=== PATIENT | female | born 1945 | race Caucasian/White ===

== ENCOUNTER 2017-08-11 07:51 | Day surgery (SDC) | payer MEDICARE, MEDICAID, SELFPAY | END 2017-08-11 14:55 | disposition home or self-care (01) | PROVIDERS: Family Provider Internal Medicine; Visit Provider Orthopaedic Surgery | DX: M84.375A Stress fracture, left foot, initial encounter for fracture (principal); M89.8X7 Other specified disorders of bone, ankle and foot; M19.072 Primary osteoarthritis, left ankle and foot | CPT/HCPCS: 28450; 73620; 76000; 87070; 87075; C1713; J2405 ==

== ENCOUNTER → 2017-10-22 13:12 | Outpatient (CLI) | payer MEDICARE, MEDICAID, SELFPAY ==
--- NOTE | 2017-10-22 13:19 | XR_ITS ---
XR foot LT min 3V HISTORY: ITS.REASON: status post LEFT subchondroplasty navicular ORDERING PHYSICIAN: Rosales Corey MD PATIENT AGE: 71 years COMPARISON: 08/31/2017 FINDINGS: Status post subchondroplasty of the navicular with hyperdensity noted within the navicular with extravasation of the material in the mid foot as before. Overall no significant change. Mild osteopenia of the bony structures. IMPRESSION: Status post subchondral plasty of the navicular with some extravasation of the material in the periventricular region as before. Overall no significant change
== END ==
PROVIDERS: PCP Internal Medicine; Visit Provider Orthopaedic Surgery
DX: Z48.89 Encounter for other specified surgical aftercare (principal)
CPT/HCPCS: 73630

== ENCOUNTER → 2017-12-23 13:32 | Outpatient (CLI) | payer MEDICARE, MEDICAID, SELFPAY ==
--- NOTE | 2017-12-23 13:36 | XR_ITS ---
Left foot: Weightbearing Foot 3 Views HISTORY: Pain and swelling ITS.REASON: left foot pain ORDERING PHYSICIAN: Rosales Corey MD PATIENT AGE: 71 years COMPARISON: 2 05 01 FINDINGS: Diffuse increased density once again noted involving the navicular consistent with previous subchondral plasty. Multiple foci of hyperdensity noted in the periarticular region of the mid foot in the periventricular region and between the distal aspect of the calcaneus and cuboid consistent with extravasation of material injected for the subchondral plasty. There is a additional lucency along the medial aspect of the navicular not readily apparent on the previous study. This could related to overlying artifact from the hyperdense material. A fracture is an additional consideration. Consider CT for more thorough evaluation. No obstructive process IMPRESSION: Status post subchondral plasty of the navicular with possible fracture of the medial aspect of the navicular. CT may be of further value
== END ==
PROVIDERS: PCP Internal Medicine; Visit Provider Orthopaedic Surgery
DX: Z48.89 Encounter for other specified surgical aftercare (principal); M79.672 Pain in left foot
CPT/HCPCS: 73630

== ENCOUNTER → 2017-12-23 14:54 | Outpatient (CLI) | payer MEDICARE, MEDICAID, SELFPAY ==
[2017-12-23 15:12] LABS: Basophils # 0.1 K/mm3 (0-0.2); Basophils % 0.5 % (0.1-2.0); Eosinophils # 0.2 K/mm3 (0.0-0.4); Eosinophils % 1.5 % (0.1-12.0); Hematocrit 47.1 % (37.0-47.0); Hemoglobin 15.2 g/dL (12.2-16.2); Lymphocytes # 3.9 K/mm3 (0.7-4.5); Lymphocytes % 28.8 K/mm3 (10-50); Mean Corpuscular HGB Conc 32.2 g/dL (31.8-35.4); Mean Corpuscular Hemoglobin 28.9 pg (27.0-31.2); Mean Corpuscular Volume 89.8 fl (81-99); Mean Platelet Volume 8.7 fl (7.4-10.4); Monocytes # 0.8 K/mm3 (0.1-1.0); Monocytes % 5.6 % (1.7-9.3); Neutrophils # 8.6 K/mm3 (1.8-7.8); Neutrophils % 63.6 % (37.0-80.0); Platelet Count 360 K/mm3 (142-424); Red Blood Count 5.25 M/mm3 (4.20-5.40); Red Cell Distribution Width 14.4 % (11.5-17.5); White Blood Count 13.5 K/mm3 (4.8-10.8)
[2017-12-23 15:44] LABS: C-Reactive Protein 1.9 mg/L (0.0-0.9)
[2017-12-23 15:50] LABS: Erythrocyte Sedimentation Rate 23 mm/hr (0-30)
== END ==
PROVIDERS: PCP Internal Medicine; Visit Provider Orthopaedic Surgery
DX: B99.9 Unspecified infectious disease (principal); Z48.89 Encounter for other specified surgical aftercare; M79.672 Pain in left foot
CPT/HCPCS: 36415; 73630; 85025; 85651; 86140

== ENCOUNTER → 2018-01-04 12:16 | Outpatient (CLI) | payer MEDICARE, MEDICAID, SELFPAY ==
[2018-01-04 12:39] LABS: Basophils # 0.1 K/mm3 (0-0.2); Basophils % 0.6 % (0.1-2.0); Eosinophils # 0.1 K/mm3 (0.0-0.4); Hematocrit 46.9 % (37.0-47.0); Hemoglobin 15.1 g/dL (12.2-16.2); Lymphocytes % 35.6 K/mm3 (10-50); Mean Corpuscular HGB Conc 32.3 g/dL (31.8-35.4); Mean Corpuscular Hemoglobin 28.7 pg (27.0-31.2); Mean Platelet Volume 8.5 fl (7.4-10.4); Monocytes # 0.5 K/mm3 (0.1-1.0); Monocytes % 4.4 % (1.7-9.3); Neutrophils # 6.5 K/mm3 (1.8-7.8); Neutrophils % 58.3 % (37.0-80.0); Platelet Count 362 K/mm3 (142-424); Red Blood Count 5.27 M/mm3 (4.20-5.40); Red Cell Distribution Width 14.3 % (11.5-17.5); White Blood Count 11.1 K/mm3 (4.8-10.8)
[2018-01-04 13:05] LABS: C-Reactive Protein 0.7 mg/L (0.0-0.9)
[2018-01-04 14:41] LABS: Erythrocyte Sedimentation Rate 0 mm/hr (0-30)
== END ==
PROVIDERS: Visit Provider Orthopaedic Surgery
DX: M25.562 Pain in left knee (principal); B99.9 Unspecified infectious disease
CPT/HCPCS: 36415; 85025; 85651; 86140

== ENCOUNTER → 2018-01-20 10:28 | Outpatient (CLI) | payer MEDICARE, MEDICAID, SELFPAY ==
[2018-01-20 11:57] LABS: Alanine Aminotransferase 37 U/L (12-78); Albumin Level 3.8 gm/dL (3.4-5.0); Albumin/Globulin Ratio 1.1 (1.1-1.8); Alkaline Phosphatase 96 U/L (46-116); Anion Gap 14.2 mEq/L (5-15); Aspartate Amino Transferase 30 U/L (15-37); Bilirubin,Total 0.3 mg/dL (0.2-1.0); Blood Urea Nitrogen 13 mg/dL (7-18); C-Reactive Protein 1.1 mg/L (0.0-0.9); Calcium 9.2 mg/dL (8.5-10.1); Carbon Dioxide 26 mmol/L (21.0-32.0); Chloride 107 mmol/L (98-107); Creatinine,Serum 0.57 mg/dL (0.55-1.02); Estimated Glomerular Filt Rate 105 ml/min (>60); GFR (African American) 127 ML/MIN (>60); Globulin 3.4 gm/dl (1.3-3.2); Glucose 91 mg/dL (74-106); Potassium 4.2 mmoL/L (3.5-5.1); Sodium 143 mmol/L (136-145); Total Protein,Serum 7.2 gm/dL (6.4-8.2)
[2018-01-20 12:25] LABS: Erythrocyte Sedimentation Rate 17 mm/hr (0-30)
== END ==
PROVIDERS: Visit Provider Orthopaedic Surgery
DX: I10 Essential (primary) hypertension (principal)
CPT/HCPCS: 36415; 80048; 80053; 85651; 86140

== ENCOUNTER → 2018-02-10 11:59 | Outpatient (CLI) | payer MEDICARE, MEDICAID, SELFPAY ==
--- NOTE | 2018-02-10 12:07 | XR_ITS ---
XR foot LT min 3V HISTORY: Follow-up surgery, foot pain ITS.REASON: follow up ORDERING PHYSICIAN: Rosales Corey MD PATIENT AGE: 72 years COMPARISON: 12/23/2017 FINDINGS: Status post prior navicular subchondral plasty. There is extravasation of the bone cement in the periventricular region. There was question of a fracture of the navicular on the previous study not well demonstrated on today's exam. Small amount of bone cement is extravasated between the first and second cuneiforms. IMPRESSION: Overall no change status post subchondral plasty of the navicular
[2018-02-10 12:30] LABS: Basophils # 0.1 K/mm3 (0-0.2); Basophils % 0.8 % (0.1-2.0); Eosinophils # 0.1 K/mm3 (0.0-0.4); Eosinophils % 1.2 % (0.1-12.0); Hematocrit 44.8 % (37.0-47.0); Hemoglobin 13.9 g/dL (12.2-16.2); Lymphocytes # 3.4 K/mm3 (0.7-4.5); Lymphocytes % 37.8 K/mm3 (10-50); Mean Corpuscular HGB Conc 31.1 g/dL (31.8-35.4); Mean Corpuscular Hemoglobin 27.7 pg (27.0-31.2); Mean Platelet Volume 8.4 fl (7.4-10.4); Monocytes # 0.5 K/mm3 (0.1-1.0); Monocytes % 5.2 % (1.7-9.3); Neutrophils # 4.9 K/mm3 (1.8-7.8); Neutrophils % 55.1 % (37.0-80.0); Platelet Count 318 K/mm3 (142-424); Red Blood Count 5.03 M/mm3 (4.20-5.40); Red Cell Distribution Width 13.9 % (11.5-17.5)
[2018-02-10 13:24] LABS: Erythrocyte Sedimentation Rate 19 mm/hr (0-30)
== END ==
PROVIDERS: Visit Provider Orthopaedic Surgery
DX: Z09 Encounter for follow-up examination after completed treatment for conditions other than malignant neoplasm (principal); Z79.899 Other long term (current) drug therapy
CPT/HCPCS: 36415; 73630; 85025; 85651; 86140

== ENCOUNTER → 2019-05-17 09:47 | Outpatient (CLI) | payer MEDICARE, MEDICAID, SELFPAY ==
[2019-05-17 11:09] LABS: Basophils # 0.1 K/mm3 (0-0.2); Basophils % 0.6 % (0.1-2.0); Eosinophils # 0.1 K/mm3 (0.0-0.4); Eosinophils % 0.7 % (0.1-12.0); Hematocrit 44.9 % (37.0-47.0); Hemoglobin 14.3 g/dL (12.2-16.2); Lymphocytes # 3.1 K/mm3 (0.7-4.5); Lymphocytes % 37.8 % (10-50); Mean Corpuscular HGB Conc 31.9 g/dL (31.8-35.4); Mean Corpuscular Hemoglobin 28.4 pg (27.0-31.2); Mean Corpuscular Volume 89.3 fl (81-99); Monocytes # 0.5 K/mm3 (0.1-1.0); Monocytes % 6.3 % (1.7-9.3); Neutrophils # 4.4 K/mm3 (1.8-7.8); Neutrophils % 54.5 % (37.0-80.0); Platelet Count 344 K/mm3 (142-424); Red Blood Count 5.03 M/mm3 (4.20-5.40); White Blood Count 8.1 K/mm3 (4.8-10.8)
[2019-05-17 12:15] LABS: Alanine Aminotransferase 42 U/L (12-78); Albumin Level 3.9 gm/dL (3.4-5.0); Albumin/Globulin Ratio 1.1 (1.1-1.8); Alkaline Phosphatase 79 U/L (46-116); Anion Gap 16.2 mEq/L (5-15); Aspartate Amino Transferase 42 U/L (15-37); Bilirubin,Total 0.5 mg/dL (0.2-1.0); Blood Urea Nitrogen 14 mg/dL (7-18); Calcium 9.7 mg/dL (8.5-10.1); Carbon Dioxide 29 mmol/L (21.0-32.0); Chloride 101 mmol/L (98-107); Chol/HDL Ratio 3.6 (1-3.5); Cholesterol 215 mg/dL (140-200); Estimated Glomerular Filt Rate 98 ml/min (>60); GFR (African American) 119 ML/MIN (>60); Globulin 3.4 gm/dl (1.3-3.2); Glucose 103 mg/dL (74-106); HDL Cholesterol 59 mg/dL (29-89); LDL Cholesterol 133 mg/dL (0-130); Potassium 4.2 mmoL/L (3.5-5.1); Sodium 142 mmol/L (136-145); Total Protein,Serum 7.3 gm/dL (6.4-8.2); Triglycerides 113 mg/dL (30-200); VLDL Cholesterol 23 mg/dL (0-40)
== END ==
PROVIDERS: Visit Provider Internal Medicine
DX: I10 Essential (primary) hypertension (principal); E78.5 Hyperlipidemia, unspecified; G62.9 Polyneuropathy, unspecified
CPT/HCPCS: 36415; 80053; 80061; 85025

== ENCOUNTER → 2020-04-23 11:13 | Outpatient (CLI) | payer MEDICARE, MEDICAID, SELFPAY ==
[2020-04-23 11:57] LABS: Basophils # 0.1 K/mm3 (0-0.2); Eosinophils # 0.1 K/mm3 (0.0-0.4); Eosinophils % 1.3 % (0.1-12.0); Hematocrit 44.3 % (37.0-47.0); Hemoglobin 15.2 g/dL (12.2-16.2); Lymphocytes # 3.4 K/mm3 (0.7-4.5); Lymphocytes % 36.2 % (10-50); Mean Corpuscular HGB Conc 34.3 g/dL (31.8-35.4); Mean Corpuscular Hemoglobin 29.4 pg (27.0-31.2); Mean Corpuscular Volume 85.8 fl (81-99); Mean Platelet Volume 8.2 fl (7.4-10.4); Monocytes # 0.5 K/mm3 (0.1-1.0); Neutrophils # 5.4 K/mm3 (1.8-7.8); Neutrophils % 56.6 % (37.0-80.0); Platelet Count 331 K/mm3 (142-424); Red Blood Count 5.16 M/mm3 (4.20-5.40); Red Cell Distribution Width 14.2 % (11.5-17.5); White Blood Count 9.5 K/mm3 (4.8-10.8)
[2020-04-23 12:03] LABS: Hemoglobin A1C 6.4 % (4.0-6.0)
[2020-04-23 12:12] LABS: Alanine Aminotransferase 61 U/L (12-78); Albumin Level 4.3 g/dl (3.5-5.0); Albumin/Globulin Ratio 1.4 (1.1-1.8); Alkaline Phosphatase 97 U/L (38-126); Anion Gap 14.8 mEq/L (5-15); Aspartate Amino Transferase 106 U/L (14-36); Bilirubin,Total 0.7 mg/dl (0.2-1.3); Blood Urea Nitrogen 15 mg/dl (7-17); Calcium 9.9 mg/dl (8.4-10.2); Carbon Dioxide 29 mmol/L (22.0-30.0); Chloride 99 mmol/L (98-107); Chol/HDL Ratio 3.3 (1-3.5); Cholesterol 209 mg/dl (140-200); Estimated Glomerular Filt Rate 98 ml/min (>60); GFR (African American) 119 ML/MIN (>60); Globulin 3.1 g/dL (1.3-3.2); Glucose 114 mg/dl (74-100); HDL Cholesterol 63 mg/dl (40-60); Potassium 3.8 mmoL/L (3.5-5.1); Sodium 139 mmol/L (136-145); Total Protein,Serum 7.4 g/dl (6.3-8.2); Triglycerides 126 mg/dl (30-150); VLDL Cholesterol 25 mg/dL (0-40)
[2020-04-23 12:22] LABS: Direct LDL Cholesterol 138.96 mg/dL (100-129)
[2020-04-23 12:33] LABS: Erythrocyte Sedimentation Rate 18 mm/hr (0-30)
[2020-04-23 12:42] LABS: Thyroid Stimulating Hormone 3.28 uIU/mL (0.465-4.68)
[2020-04-24 15:54] LABS: Albumin 3.6 g/dL (2.9-4.4); Alpha-1-Globulin 0.3 g/dL (0.0-0.4); Alpha-2-Globulin 0.9 g/dL (0.4-1.0); Gamma Globulin 0.8 g/dL (0.4-1.8)
== END ==
PROVIDERS: Visit Provider Internal Medicine
DX: G60.9 Hereditary and idiopathic neuropathy, unspecified (principal); G43.909 Migraine, unspecified, not intractable, without status migrainosus; I10 Essential (primary) hypertension; E78.5 Hyperlipidemia, unspecified; M54.5 Low back pain; Z79.899 Other long term (current) drug therapy
CPT/HCPCS: 36415; 80053; 80061; 83036; 84155; 84165; 84443; 85025; 85651

== ENCOUNTER 2022-03-04 13:09 | Emergency (ER) | payer MEDICARE, OTHER, SELFPAY ==
[2022-03-04 13:10] VITALS: BP 129/82; PULSE 101; RESP 18; TEMP 36.7; O2SAT 97; BMI 32.3
--- NOTE | 2022-03-04 13:24 | XR_ITS ---
FINAL REPORT CLINICAL HISTORY: FALL, left lateral foot pain, bruising FINDINGS: LEFT FOOT: Three views of the left foot were obtained. There is a comminuted fracture of the mid and distal 5th metatarsal to 4 mm of distraction. There are mild degenerative changes of the midfoot. There is a small plantar calcaneal spur. There is no soft tissue abnormality. IMPRESSION: Comminuted fracture of the mid and distal 5th metatarsal. Reviewed, Interpreted and Dictated by Adriel Fritz III, MD Transcribed by Cha Doran Authenticated and [facility]
--- NOTE | 2022-03-04 13:24 | XR_ITS ---
FINAL REPORT CLINICAL HISTORY: FALL, knee pain FINDINGS: RIGHT KNEE: Three views of the right knee were obtained. There is no acute fracture or dislocation. Visualized joint spaces are normally aligned. There is no joint effusion. Soft tissues are unremarkable. IMPRESSION: No acute bony abnormality. Reviewed, Interpreted and Dictated by Adriel Fritz III, MD Transcribed by Cha Doran Authenticated and [facility]
[2022-03-04 13:50] VITALS: BP 129/82; PULSE 101; RESP 18; TEMP 36.7; O2SAT 97; BMI 32.3
--- NOTE | 2022-03-04 14:05 | HMH.EDUTC ---
[facility] [place] Clinical Impression: Foot fracture Qualifiers: Encounter type: initial encounter Fracture type: closed Laterality: left Qualified Code(s): S92.902A - Unspecified fracture of left foot, initial encounter for closed fracture Disposition: Home, Self-Care Condition on Discharge: Good Instructions: How to Use an Elastic Bandage-Knee Sprain, DI for Knee Sprain, How To Perform RICE (Rest, Ice, Compress, Elevate) Additional Instructions: Go straight to DR Ochoa office for further treatment and evaluation *RICE, Rest the extremity, Ice 15-20 minutes 3-4 times daily, Compress- wear the darrion wrap as discussed as much as possible to help reduce swelling and pain, Elevate the extremity when at rest *Darrion wrap is for support and help control swelling in right knee, use it except in the shower. Be sure that is not to tight but not to loose either *Elevate when resting Immediately follow up with your family doctor for new or worsening of symptoms, or no noticeable improvement over the next 3-5 days Further treatment per Dr Ochoa Referrals: Onur Barillas MD [Primary Care Provider] - As needed Ofelia Ochoa DPM [Staff Physician] - Time of Disposition: 14:36 Medical Decision Making - Nash Inquiry Pt receiving controlled substance: No Nash was queried for this patient: No Vital Signs: 03/04/22 13:10 03/04/22 13:50 03/04/22 14:38 Temperature 98.1 F 98.1 F 98.1 F Temperature Source Oral Oral Pulse Rate 101 H Pulse Rate [Right Brachial] 101 H 101 H Respiratory Rate 18 18 18 Blood Pressure 129/82 Blood Pressure [Right Arm] 129/82 129/82 Blood Pressure Mean [Right Arm] 97 97 Blood Pressure Source [Right Arm] Automatic Cuff Automatic Cuff Blood Pressure Position [Right Arm] Sitting Sitting 02 Sat by Pulse Oximetry 97 97 Oxygen Delivery Method Room Air Room Air - Radiology Data #1 Image(s): Knee Image Reviewed: Yes I have reviewed radiologist's interpretation IMPRESSION: No acute bony abnormality. #2 Image(s): Foot/Toes Image Reviewed: Yes I have reviewed radiologist's interpretation IMPRESSION: Comminuted fracture of the mid and distal 5th metatarsal. - Physician Consults Physician Consulted: Dr Corey Time: 14:00 Reason -: Orthopedic Eval/Care Comment/Response: Spoke with Dr Corey and he advised to speak with Dr Ochoa in Podiatry for fracture in foot Additional Consult: Dr Ochoa Time: 14:25 Reason -: Podiatry Eval/Care Comment/Response: Awaiting call back, Dr Ochoa called back and she viewed xrays Advised to bring patient to her clinic and they would splint/boot and discuss further treatment options [facility] [place] - General Stated complaint: AO fall 03/03 foot/knee pain Time Seen by Provider: 03/04/22 14:06 Mode of Arrival: Ambulatory Source of Information: Patient Limitations: No Limitations Description of Symptoms (Recalled from Triage Doc. by RN): PATIENT REPORTS FALLING LAST NIGHT. C/O PAIN TO RIGHT KNEE AND LEFT FOOT. BRUISING NOTED TO LEFT FOOT. DENIES HITTING HEAD OR LOC HEENT Symptoms (Recalled from RN notes): No Resp Symptoms (Recalled from RN notes): No Skin Symptoms (Recalled from RN notes): No MS Symptoms (Recalled from RN notes): Yes Functional Status (Recalled from RN notes): WNL - History of Present Illness Provider Complaint: Patient states that she got up to go to the bathroom last night when he feet folded under her and she fell States that she has been having pain in her right knee and left foot States that left foot is bruised and swollen and she hasnt been able to walk on it without pain so she came in today - Related Data Home Medications Medication Instructions Recorded Confirmed cetirizine 10 mg capsule PO 10/22/17 03/04/22 clonidine HCl 0.1 mg tablet 0.1 mg PO BID 10/22/17 03/04/22 fluoxetine 10 mg capsule 10 mg PO BID 10/22/17 03/04/22 furosemide 20 mg tablet 20 mg PO ONCE 10/22/17 03/04/22 levothyroxine 50 mcg capsule PO 10/22/17 03/04/22 topira
[2022-03-04 14:38] VITALS: BP 129/82; PULSE 101; RESP 18; TEMP 36.7; O2SAT 97
== END 2022-03-04 14:39 | disposition home or self-care (01) ==
LOC: ER 13:22 → UTC 13:22
PROVIDERS: Emergency Provider Nurse Practitioner; PCP Internal Medicine
DX: S92.352A Displaced fracture of fifth metatarsal bone, left foot, initial encounter for closed fracture (principal); S83.91XA Sprain of unspecified site of right knee, initial encounter; M25.561 Pain in right knee; M79.672 Pain in left foot; W01.0XXA Fall on same level from slipping, tripping and stumbling without subsequent striking against object, initial encounter; Y92.013 Bedroom of single-family (private) house as the place of occurrence of the external cause
CPT/HCPCS: 36415; 71046; 73562; 73630; 80053; 82652; 83036; 85025; 85651; 86140; 93005; 99213; C9803; G0463; U0003; U0005

== ENCOUNTER → 2022-03-04 15:44 | Outpatient (CLI) | payer MEDICARE, OTHER, SELFPAY ==
--- NOTE | 2022-03-04 15:57 | ECG_ITS ---
APPROVED REPORT Exam: Resting ECG HR:93 bpm ECG Measurements Heart Rate 93 AXES SD 155 P 90 QRSd 89 QRS 78 QT 369 T 74 QTc 420 Conclusion SINUS RHYTHM LOW QRS VOLTAGE IN PRECORDIAL LEADS [QRS DEFLECTION < 1.0 mV IN CHEST LEADS] NONSPECIFIC T-WAVE ABNORMALITY BORDERLINE ECG UNCONFIRMED REPORT Electronically signed by : Norman Aviles MD 03/05/2022 14:40:14
--- NOTE | 2022-03-04 15:59 | XR_ITS ---
FINAL REPORT CLINICAL HISTORY: preop exam,asymptomatic at this time. ankle surgery tomorrow. COMPARISON: August 04, 2017 FINDINGS: Two views of the chest were obtained. The heart size and pulmonary vascularity are within normal limits. The mediastinum is normal. No acute pulmonary abnormality is identified. There is no pneumothorax. The bony thorax is intact. IMPRESSION: No active cardiopulmonary disease. Reviewed, Interpreted and Dictated by Adriel Fritz III, MD Transcribed by Butch Templeton Authenticated and . [facility]
[2022-03-04 16:43] LABS: Basophils # 0.2 K/mm3 (0-0.2); Basophils % 1.7 % (0.1-2.0); Eosinophils # 0.1 K/mm3 (0.0-0.4); Hematocrit 46.3 % (37.0-47.0); Hemoglobin 15.3 g/dL (12.2-16.2); Lymphocytes # 2.7 K/mm3 (0.7-4.5); Mean Corpuscular HGB Conc 33.1 g/dL (31.8-35.4); Mean Corpuscular Hemoglobin 29.4 pg (27.0-31.2); Mean Corpuscular Volume 88.9 fl (81-99); Mean Platelet Volume 8.8 fl (7.4-10.4); Monocytes # 0.6 K/mm3 (0.1-1.0); Monocytes % 4.6 % (1.7-9.3); Neutrophils # 9.7 K/mm3 (1.8-7.8); Neutrophils % 72.7 % (37.0-80.0); Platelet Count 378 K/mm3 (142-424); Red Cell Distribution Width 14.5 % (11.5-17.5); White Blood Count 13.4 K/mm3 (4.8-10.8)
[2022-03-04 18:06] LABS: Erythrocyte Sedimentation Rate 10 mm/hr (0-30)
[2022-03-04 18:10] LABS: Chloride 101 mmol/L (98-107); Potassium 4.1 mmoL/L (3.5-5.1); Sodium 137 mmol/L (136-145)
[2022-03-04 18:13] LABS: Alanine Aminotransferase 38 U/L (12-78); Albumin Level 4.5 g/dl (3.5-5.0); Albumin/Globulin Ratio 1.7 (1.1-1.8); Alkaline Phosphatase 77 U/L (38-126); Anion Gap 13.1 mEq/L (5-15); Aspartate Amino Transferase 46 U/L (14-36); Bilirubin,Total 0.5 mg/dl (0.2-1.3); Blood Urea Nitrogen 10 mg/dl (7-17); Carbon Dioxide 27 mmol/L (22.0-30.0); Estimated Glomerular Filt Rate 120 ml/min (>60); GFR (African American) 146 ML/MIN (>60); Globulin 2.7 g/dL (1.3-3.2); Total Protein,Serum 7.2 g/dl (6.3-8.2)
[2022-03-04 18:14] LABS: Calcium 10.1 mg/dl (8.4-10.2); Glucose 126 mg/dl (74-100)
[2022-03-04 19:16] LABS: Hemoglobin A1C 5.9 % (4.0-6.0)
[2022-03-21 17:11] LABS: 1,25 Dihydroxy Vitamin D 38 pg/mL (.); 1,25-Dihydroxy, Vitamin D-2 <10 pg/mL (.); 1,25-Dihydroxy, Vitamin D-3 38 pg/mL (.)
== END ==
PROVIDERS: PCP Internal Medicine; Visit Provider Podiatrist
DX: Z01.818 Encounter for other preprocedural examination (principal); M79.673 Pain in unspecified foot; R73.9 Hyperglycemia, unspecified
CPT/HCPCS: 36415; 71046; 80053; 82652; 83036; 85025; 85651; 86140; 93005; C9803; U0003; U0005

== ENCOUNTER 2022-03-05 10:35 | Day surgery (SDC) | payer MEDICARE, OTHER, SELFPAY ==
[2022-03-05 11:05] VITALS: BP 143/94; PULSE 100; RESP 18; TEMP 36.9; O2SAT 95; BMI 32.3
--- NOTE | 2022-03-05 13:27 | HMH.ANESCL ---
[facility] Anesthesia Checklist - Patient Identification Patient Identification: Arm Band - Structural Data Admitted From: Home Planned Operative Procedure/s: ORIF Left Foot Consent for Planned Operative Procedure(s) Verified: Yes Verified Documents: Surgical Consent, History and Physical - NPO Status Verified Time NPO: 00:00 - Additional verifications Anesthesia Reactions: Yes (NAUSEA / VOMITING) Hx Blood Transfusions: No Blood Transfusion Reaction: No - Airway Assessment C-Spine Mobility Assessed: Yes (mp2) TMJ Mobility Assessed: Yes Dentition: Edentulous - Neurological Assessment Level of Consciousness: Awake, Alert - Anesthesia Plan Anesthesia Risk discussed: Yes Anesthesia Plan: Verified ASA Class: II Anesthesia Type: MAC w/Block [facility] History I have reviewed the patient's past medical history: Yes Medical History: Reports:: Anxiety, Asthma, Gastroesophageal Reflux Disease(GERD), Hypertension, Osteoporosis Denies:: Cancer, Diabetes Mellitus Type 1, Diabetes Mellitus Type 2, MRSA, Seizures Comment Only: Internal Pacemaker (PACEMAKER REMOVED 1988) *Have you ever received a pneumonia vaccine?: No *Have you received a flu vaccine this season?: Yes Other Medical History: Reports: Arthritis, Hypothyroidism, Osteoporosis. Denies: Blood Transfusion Reaction Anesthesia experience/problems:: ponv Laterality Cases: Left: Other Other Surgeries: Yes: Hysterectomy-Total, Tubal Ligation, Other (meet Christine )Comment Only: Pacemaker (PACEMAKER REMOVED 1988) Amputation: No Fractures: No - *Social History Last grade of school completed: High school graduate Smoking Status: Never smoker Alcohol Intake: never Substance Use Type: denies use *Occupational Status:: retired Housing: house Household Members: none *Travel in the last 8 weeks: None - Psychiatric History Pschychiatric History:: Reports:: Anxiety Family Hx:: Cancer, Diabetes, Heart Attack, Hyperlipidemia, Hypertension, Stroke
[2022-03-05 13:40] VITALS: TEMP 38
--- NOTE | 2022-03-05 13:56 | SUR.OPER ---
1323 family updated that procedure has begun by Virginia Gastelum RN
--- NOTE | 2022-03-05 14:00 | XR_ITS ---
FINAL REPORT CLINICAL HISTORY: ORIF L 5th met COMPARISON: March 04, 2022 FINDINGS: LEFT FOOT Three views of the left foot demonstrate postoperative changes from ORIF of the 5th metatarsal fracture. There is improved alignment of the fracture fragments. Mild degenerative change is noted. The soft tissues are unremarkable. IMPRESSION: Postoperative changes from ORIF of the 5th metatarsal fracture with improved alignment. Reviewed, Interpreted and Dictated by Adriel Fritz III, MD Transcribed by China Dao Authenticated and [facility]
--- NOTE | 2022-03-05 14:13 | XR_ITS ---
FINAL REPORT CLINICAL HISTORY: ORIF 5TH METETARSAL Fluoro time: .24 FINDINGS: FLUORO TIME PROCEDURE: Fluoroscopy in the operating room. FINDINGS: Fluoroscopy time was provided by the radiology department for the clinical service. Two films were obtained. Fluoroscopy exposure time: 24 seconds IMPRESSION: 24 seconds of fluoroscopy time. Reviewed, Interpreted and Dictated by Adriel Fritz III, MD Transcribed by Cha Doran Authenticated and [facility]
[2022-03-05 14:40] VITALS: BP 113/55; PULSE 99; RESP 16; TEMP 36.1; O2SAT 95
[2022-03-05 14:55] VITALS: BP 97/64; PULSE 85; RESP 16; TEMP 36.1; O2SAT 93
--- NOTE | 2022-03-05 15:07 | HMH.OPNOTE ---
Date of procedure: 03/05/22 Pre-op Diagnosis:: 1. Left 5th metatarsal displaced comminuted fracture 2. History of left navicular stress fracture Post-op Diagnosis:: Same Procedure performed:: 1. Left fifth metatarsal ORIF 2. Left navicular bone biopsy Surgeon:: Ofelia Ochoa DPM [employer]ER:: Pa Serna Anesthesia: MAC, regional (Left popliteal nerve block) Estimated blood loss (mL): 10 Clinical Note:: Patient is a 76-year-old active female who injured the left foot and right knee when she fell getting out of bed 03/03/2022. X-rays reviewed and discussed with the patient. Conservative treatment discussed but not recommended. Patient is active, drives and lives alone. She needs the quickest return to activity. Patient does have a history of left navicular stress fracture which was surgically treated by Dr. Corey on 08/11/2017. Patient reports history of pain and swelling to the left foot since the injury it has never been right . She reports history of post op infection. We discussed surgery. All risks and benefits were discussed including but not limited to: damage to blood vessels and nerves, bleeding, infection, wound complications, delayed, mal or non-union of bone, post-traumatic arthritis, need for further surgery, implant failure, need for removal of implant, prolonged or permanent swelling of the extremity, prolonged or permanent pain or deformity, CRPS/RSD, DVT/PE, and anesthetic complications including . No guarantees were given. All questions fully answered. The patient verbalized understanding and agreed to proceed with surgery. Consent was obtained. Necessary labs and pre-op testing ordered: CBC, BMP, esr, crp, vit D, Ha1c, EKG, CXR, covid. Pt was given a Rx for Percocet 7.5/325 #30, Zofran, Motrin and Doxy 100mg BID. Patient given a fracture boot. Patient has crutches and walker at home. Operative findings:: Navicular had a history of stress fracture with some chondroplasty procedure in 2017. Navicular bone was soft dorsally but hard medially. No evidence of purulence malodor or sinus tracking noted. Left fifth metatarsal bone decreased density. Comminuted fifth metatarsal fracture appreciated. Operative note:: On this date and time patient was deemed an appropriate surgical candidate. A pre-operative popliteal regional nerve block was given by anesthesia. With informed consent signed, the patient was taken to the operating theater. The patient was positioned supine. MAC anesthesia was induced. Tourniquet was applied to the left mid-calf @225mmHg. The left lower extremity was prepped and draped in normal sterile fashion. Left navicular open bone biopsy: Attention was directed to the dorsal foot where intraoperative fluoroscopy was utilized to willi out to small incisions over the dorsal and medial navicular. Stab incision with 15 blade. Blunt dissection down to bone. QRxPharmashidi needle used to obtain specimens. A piece from dorsal and medial were sent as bone biopsy and culture. See operative findings. Wounds were flushed with saline. Vicryl used to reapproximate the skin in a subcuticular fashion. Left 5th Metatarsal ORIF: Attention was directed to the dorsal foot, where intra-op fluoroscopy was used to map out the 5th metatarsal on both the AP, MO and lateral views. A 15' blade was used to make an incision extending from the 5th metatarsal phalangeal joint to the 5th metatarsal shaft. Blunt dissection was utilized to dissect thru subcutaneous tissue with care taken to maintain surgical hemostasis and safely retract neurovascular structures. A mixture of sharp and blunt dissection technique was then used to carry dissection down through the deep fascia with care taken to safely retract the extensor tendon laterally. Dissection was used to incise through the periosteum and the capsule over the metatarsal exposing the fracture. There was no visible callus noted. On the lateral metatarsal there was one main fracture fragment. However on the medial
[2022-03-05 15:25] VITALS: BP 107/61; PULSE 90; RESP 18; TEMP 36.1; O2SAT 92
[2022-03-05 15:54] VITALS: BP 149/87; PULSE 86; RESP 18; TEMP 36.1; O2SAT 97
== END 2022-03-05 15:54 | disposition home or self-care (01) ==
PROVIDERS: PCP Internal Medicine; Visit Provider Podiatrist
DX: S92.352A Displaced fracture of fifth metatarsal bone, left foot, initial encounter for closed fracture (principal); W06.XXXA Fall from bed, initial encounter; Z91.81 History of falling; Y92.013 Bedroom of single-family (private) house as the place of occurrence of the external cause
CPT/HCPCS: 27635; 28485; 73620; 73630; 76000; 88304; 88307; 88311; 96374; C1713; C1776; J2704

== ENCOUNTER → 2022-03-20 09:39 | Outpatient (CLI) | payer MEDICARE, OTHER, SELFPAY ==
--- NOTE | 2022-03-20 09:44 | XR_ITS ---
FINAL REPORT CLINICAL HISTORY: fracture eval, postop COMPARISON: March 05, 2022 FINDINGS: 3 views of the left foot were obtained. There is postoperative change of the 5th metatarsal with a screw plate and multiple screws. There are mild degenerative changes. There is significant deformity of the navicular of uncertain etiology. IMPRESSION: Stable postoperative change of the 5th metatarsal. Deformity of the navicular of uncertain etiology. Fracture versus osteonecrosis. Reviewed, Interpreted and Dictated by Adriel Fritz III, MD Transcribed by Butch Templeton Authenticated and [facility] [place] [place]
== END ==
PROVIDERS: PCP Internal Medicine; Visit Provider Podiatrist
DX: S92.352A Displaced fracture of fifth metatarsal bone, left foot, initial encounter for closed fracture (principal); Z98.890 Other specified postprocedural states
CPT/HCPCS: 73630

== ENCOUNTER → 2022-04-10 08:46 | Outpatient (CLI) | payer MEDICARE, OTHER, SELFPAY ==
--- NOTE | 2022-04-10 08:51 | XR_ITS ---
FINAL REPORT CLINICAL HISTORY: postop views, fx eval COMPARISON: March 20, 2022 FINDINGS: AP, oblique and lateral views of the left foot were obtained. Again seen are postoperative changes of ORIF of the 5th metatarsal. The hardware is intact. There is no significant increased callus formation. The appearance of the navicular is unchanged, possibly related to fracture or osteonecrosis. There is no acute soft tissue abnormality. IMPRESSION: Postoperative changes of the 5th metatarsal with no significant increased callus formation. Appearance of the navicular is unchanged, possibly related to fracture or osteonecrosis Reviewed, Interpreted and Dictated by Theresa Spence MD Transcribed by Cha Doran Authenticated and [facility]
== END ==
PROVIDERS: PCP Internal Medicine; Visit Provider Podiatrist
DX: S92.352A Displaced fracture of fifth metatarsal bone, left foot, initial encounter for closed fracture (principal); Z98.890 Other specified postprocedural states
CPT/HCPCS: 73630

== ENCOUNTER → 2022-05-01 10:27 | Outpatient (CLI) | payer MEDICARE, OTHER, SELFPAY ==
--- NOTE | 2022-05-01 10:38 | XR_ITS ---
FINAL REPORT CLINICAL HISTORY: FRACTURE EVALUATION COMPARISON: 04/10/2022 FINDINGS: LEFT FOOT: Three views of the left foot were obtained. The bones are osteopenic. There are mild to moderate degenerative changes. There is sclerosis of the navicular which is stable. There are postoperative changes of the 5th metatarsal with a screw plate and multiple screws present. There is a subacute to chronic fracture of the mid 5th metatarsal which is stable. There is a small plantar calcaneal spur. No acute soft tissue abnormality. IMPRESSION: Degenerative and postoperative changes as described with a stable subacute to chronic fracture of the mid 5th metatarsal. Reviewed, Interpreted and Dictated by Adriel Fritz III, MD Transcribed by Mary Gregory Authenticated and [facility]
== END ==
PROVIDERS: PCP Internal Medicine; Visit Provider Podiatrist
DX: S92.352A Displaced fracture of fifth metatarsal bone, left foot, initial encounter for closed fracture (principal); Z98.890 Other specified postprocedural states
CPT/HCPCS: 73630

== ENCOUNTER 2023-04-16 12:21 | Emergency (ER) | payer MEDICARE, OTHER, SELFPAY ==
[2023-04-16 12:32] VITALS: BP 145/88; PULSE 100; RESP 18; TEMP 36.8; O2SAT 96; BMI 34.1
[2023-04-16 12:41] LABS: Influenza A, PCR Not Detected (NotDetected); Influenza B, PCR Not Detected (NotDetected)
--- NOTE | 2023-04-16 12:56 | XR_ITS ---
FINAL REPORT CLINICAL HISTORY: Shortness of breath, tachycardia, covid positive, weakness COMPARISON: 03/04/2020 FINDINGS: Two views of the chest were obtained. The heart size and pulmonary vascularity are within normal limits. The mediastinum is normal. No acute pulmonary abnormality is identified. There is no pneumothorax. The bony thorax is intact. IMPRESSION: No active cardiopulmonary disease. Reviewed, Interpreted and Dictated by Adriel Fritz III, MD Transcribed by China Dao Authenticated and [facility]
--- NOTE | 2023-04-16 13:02 | HMH.EDGENADL ---
Discharge Plan Disposition Patient Disposition: Home, Self-Care Prescriptions Prescriptions: New Paxlovid 300 mg (150 mg x 2)-100 mg tablets,dose pack See Rx Instructions .ROUTE .COMPLEX Qty: 30 0RF Rx Instructions: take TWO 150 mg tablets of nirmatrelvir with ONE 100 mg tablet of ritonavir twice daily for 5 days dexamethasone 6 mg tablet 6 mg PO DAILY 5 Days Qty: 5 0RF No Action lisinopril 5 mg tablet 5 mg PO DAILY ibuprofen 800 mg tablet 800 mg PO BID Qty: 60 3RF ondansetron 4 mg tablet,disintegrating 4 mg PO Q6H Qty: 30 2RF levothyroxine 50 mcg tablet 50 mcg PO DAILY topiramate 25 mg tablet 25 mg PO DAILY cetirizine 10 mg tablet 10 mg PO DAILY Patient Comments: TAKE 1 TABLET BY MOUTH ONCE DAILY hydrochlorothiazide 25 mg tablet 25 mg PO DAILY oxycodone 5 MG tablet 1 tab PO Q4-6H PRN (Reason: pain) Patient Comments: TAKE 1 TABLET BY MOUTH EVERY 6 HOURS NEEDED FOR SEVERE PAIN cholecalciferol (vitamin D3) 1,250 MCG capsule 1,250 mcg PO WEEKLY aspirin 81 MG tablet,delayed release (DR/EC) 81 mg PO DAILY Referrals Follow up/Referrals: Onur Barillas MD [Primary Care Provider] - See instructions Activity Restrictions/Add. Instructions Additional Instructions/Restrictions: Take medications as prescribed. Take Tylenol 1000 mg every 6 hours (4 times daily) and ibuprofen 400 mg every 6 hours (4 times daily) as needed with food and water to prevent GI upset and kidney damage. Call your family doctor to establish care for this visit to the emergency department and schedule follow-up within 48 hours to ensure improvement. If you have any worsening of your condition or any other concerning signs or symptoms, return to the emergency department or your primary care doctor for further evaluation. Clinical Impressions Clinical Impression: COVID-19 Discharge ED Provider: Syed Evans General Adult HPI General Chief complaint: Upper Respiratory Infection Stated complaint: sore throat, headache Time Seen by Provider: 04/16/23 12:31 Mode of Arrival: Ambulatory Source of Information: Patient and Relative Limitations: No Limitations Description of Symptoms (Recalled from ER Triage Doc. by RN): Presents via POV d/t sudden onset of chills, bodyaches, subjective fever, and sore throat that started last night. Tx OTC Dayquil/IBU without relief. History of Present Illness HPI narrative: Is a 77-year-old female with history of hypertension, hyperlipidemia, previous MT not currently taking any medications presenting with multiple complaints. Patient states that 1 day prior to arrival, she started having chills and body aches. No objective fevers measured. 1 night prior to arrival, was unable to sleep given shortness of breath, coughing as well as body aches. Cough is nonproductive. Patient has been having shortness of breath as well as his pharyngitis. Patient only having odynophagia, no dysphagia. No pain with range of motion of neck, difficulty breathing, stridor, wheezing, chest pain, abdominal pain, urinary symptoms, diarrhea or constipation. Tylenol and Motrin do not seem to help. Related Data Home Medications Medication Instructions Recorded Confirmed lisinopril 5 mg tablet 5 mg PO DAILY bp 03/04/22 05/01/22 aspirin 81 mg tablet,delayed 81 mg PO DAILY heart health 03/05/22 05/01/22 release cholecalciferol (vitamin D3) 1,250 1,250 mcg PO WEEKLY Supplement 03/05/22 05/01/22 mcg (50,000 unit) capsule oxycodone 5 mg tablet 1 tab PO Q4-6H PRN pain 03/05/22 05/01/22 cetirizine 10 mg tablet 10 mg PO DAILY 04/10/22 05/01/22 hydrochlorothiazide 25 mg tablet 25 mg PO DAILY 04/10/22 05/01/22 levothyroxine 50 mcg tablet 50 mcg PO DAILY 04/10/22 05/01/22 topiramate 25 mg tablet 25 mg PO DAILY 04/10/22 05/01/22 Previous Rx's Medication Instructions Recorded ibuprofen 800 mg tablet 800 mg PO BID pain, mild #60 tabs 03/04/22 ondanset
--- NOTE | 2023-04-16 13:19 | ECG_ITS ---
APPROVED REPORT Exam: Resting ECG HR:92 bpm ECG Measurements Heart Rate 92 AXES UT 159 P 17 QRSd 80 QRS 38 QT 331 T 62 QTc 381 Conclusion SINUS RHYTHM WITH SINUS ARRHYTHMIA NONSPECIFIC T-WAVE ABNORMALITY BORDERLINE ECG UNCONFIRMED REPORT Electronically signed by : Norman Aviles MD 04/16/2023 17:36:45
[2023-04-16 13:20] LABS: Basophils # 0.1 K/mm3 (0-0.2); Basophils % 0.7 % (0.1-2.0); Eosinophils # 0.1 K/mm3 (0.0-0.4); Eosinophils % 1.4 % (0.1-12.0); Hematocrit 45.1 % (37.0-47.0); Hemoglobin 14.1 g/dL (12.2-16.2); Lymphocytes # 0.7 K/mm3 (0.7-4.5); Lymphocytes % 6.8 % (10-50); Mean Corpuscular HGB Conc 31.3 g/dL (31.8-35.4); Mean Corpuscular Volume 89.7 fl (81-99); Mean Platelet Volume 8.5 fl (7.4-10.4); Monocytes # 0.6 K/mm3 (0.1-1.0); Monocytes % 6.1 % (1.7-9.3); Neutrophils # 8.6 K/mm3 (1.8-7.8); Platelet Count 290 K/mm3 (142-424); Red Blood Count 5.04 M/mm3 (4.20-5.40); Red Cell Distribution Width 14.6 % (11.5-17.5); White Blood Count 10.1 K/mm3 (4.8-10.8)
[2023-04-16 13:24] LABS: Coronavirus 19, PCR Detected (NotDetected)
[2023-04-16 13:27] LABS: MANUAL DIFFERENTIAL MANUAL DIFFERENTIAL (MANUAL DIFF)
[2023-04-16 13:30] VITALS: BP 153/78; PULSE 92; O2SAT 98
[2023-04-16 13:30] LABS: Alanine Aminotransferase 49 U/L (12-78); Albumin Level 4.4 g/dl (3.5-5.0); Albumin/Globulin Ratio 1.3 (1.1-1.8); Alkaline Phosphatase 94 U/L (38-126); Aspartate Amino Transferase 82 U/L (14-36); Bilirubin,Total 0.5 mg/dl (0.2-1.3); Blood Urea Nitrogen 17 mg/dl (7-17); Calcium 9.1 mg/dl (8.4-10.2); Carbon Dioxide 26 mmol/L (22.0-30.0); Chloride 104 mmol/L (98-107); Creatinine Clearance Estimated 70 mL/min (50-200); Estimated Glomerular Filt Rate 97 ml/min (>60); GFR (African American) 118 ML/MIN (>60); Globulin 3.4 g/dL (1.3-3.2); Glucose 107 mg/dl (74-100); Sodium 139 mmol/L (136-145); Total Protein,Serum 7.8 g/dl (6.3-8.2)
[2023-04-16 13:35] LABS: D-Dimer 0.66 ug/mL (0.0-0.5)
[2023-04-16 13:38] LABS: Lymphocytes % 4 % (10-50); Monocytes % 4 % (2-9); Neutrophils % 92 % (42-76); Platelet Estimate Normal; RBC Morphology Normal; Total Cells Counted 100
[2023-04-16 13:41] LABS: NT Pro Brain Natriuretic Pep. 323 pg/mL (0-450)
[2023-04-16 13:42] LABS: Troponin I < 0.01 ng/ml (0.00-0.034)
[2023-04-16 14:00] VITALS: BP 159/75; PULSE 89; O2SAT 96
--- NOTE | 2023-04-16 14:37 | PC.NURSE ---
96% RA during ambulation. Pt c/o continued nausea. MD notified. VO Zofran 4mg IVP.
--- NOTE | 2023-04-16 14:43 | EXP.MED.CON ---
History of Present Illness *Admission Date: 04/16/23 *Reason for visit:: shortness of breath *History of present illness: ms. wallace is a 77 year old female with a past medical history of htn, hld, and asthma (on prn albuterol inhaler only) who presents with 1 day of shortness of breath and subjective fever/chills. She denies chest pain, cough, abdominal pain, diarrhea and dysuria. Workup in the ED reveals she is positive for COVID-19. CXR is without acute cardiopulmonary process and d-dimer is 0.66. She states she has been vaccinated for protection against COVID-19 and has received 2 boosters. She has no history of lung disease and no history of smoking cigarettes. [facility] Disclaimer: The information contained in this section may have been updated after the patient was seen, as this information can be updated by other users. Social History Smoking Status: Never smoker second hand exposure: No alcohol intake: never substance use type: denies use current occupational status: retired Travel in the last 8 weeks: None household members: none housing: house Review of Systems Review of Systems Review of systems:: pertinent systems reviewed and negative unless documented below Constitutional Constitutional: Reports body ache(s) and Reports chills *Cardiovascular Cardiovascular: Reports dyspnea *Respiratory Respiratory: Reports dyspnea Exam Data for Last 24 hours Vital signs and Labs for Last 24 Hours: Temp Pulse Resp BP Pulse Ox O2 Del Method 98.3 F 89 18 159/75 H 96 Room Air 04/16/23 12:32 04/16/23 14:00 04/16/23 12:32 04/16/23 14:00 04/16/23 14:00 04/16/23 12:32 Laboratory Results - last 24 hr 04/16/23 12:27: SARS-CoV-2 (PCR) Detected A, Influenza A Untype (PCR) Not detected, Influenza Type B (PCR) Not detected 04/16/23 13:04: D-Dimer 0.66 H 04/16/23 13:06: WBC 10.1, RBC 5.04, Hgb 14.1, Hct 45.1, MCV 89.7, MCH 28.0, MCHC 31.3 L, RDW 14.6, Plt Count 290, MPV 8.5, Neut % (Auto) 85.0 H, Lymph % (Auto) 6.8 L, Rutherford % (Auto) 6.1, Eos % (Auto) 1.4, Baso % (Auto) 0.7, Neut # (Auto) 8.6 H, Lymph # (Auto) 0.7, Rutherford # (Auto) 0.6, Eos # (Auto) 0.1, Baso # (Auto) 0.1, Total Counted 100, Neutrophils % (Manual) 92 H, Lymphocytes % (Manual) 4 L, Monocytes % (Manual) 4, Platelet Estimate Normal, RBC Morphology Normal, Sodium 139, Potassium 4.0, Chloride 104, Carbon Dioxide 26, Anion Gap 13.0, BUN 17, Creatinine 0.60, Estimated Creat Clear 70, Estimated GFR 97, Est GFR ( Amer) 118, Glucose 107 H, Lactate 1.0, Calcium 9.1, Total Bilirubin 0.5, AST 82 H, ALT 49, Alkaline Phosphatase 94, Troponin I < 0.01, NT-Pro-B Natriuret Pep 323, Total Protein 7.8, Albumin 4.4, Globulin 3.4 H, Albumin/Globulin Ratio 1.3 I & O for Last 24 hours: Intake & Output 04/13/23 04/14/23 04/15/23 04/16/23 23:59 23:59 23:59 23:59 Weight 92.986 kg Constitutional Constitutional: no acute distress *Routine HEENT Exam Head: Present normocephalic Eye: Present EOMI and PERRL ENT: Present mucous membranes moist *Routine Neck Exam Neck: Present supple; Absent lymphadenopathy *Routine Respiratory Exam Respiratory: Present CTA bilaterally *Routine Cardiovascular Exam Cardiovascular: Present RRR *Routine Abdominal Exam Abdominal: Present soft and normoactive bowel sounds; Absent tenderness *Routine Extremities Exam Extremities: Absent cyanosis, clubbing or edema *Routine Skin Exam Skin: Present warm; Absent rash *Routine Neurological Exam Neurological: Present alert and oriented X3 Meds Home Medications and Allergies Home Medications Medication Instructions Recorded Confirmed Type ibuprofen 800 mg tablet 800 mg PO BID pain, mild #60 tabs 03/04/22 05/01/22 Rx lisinopril 5 mg tablet 5 mg PO DAILY bp 03/04/22 05/01/22 History ondansetron 4 mg disintegrating 4 mg PO Q6H nausea and vomiting 03/04/22 05/01/22 Rx tablet #30 tabs aspirin 81 mg tablet,delayed 81 mg PO DAILY heart health 03/05/22 05/01/22 History release
[2023-04-16 14:45] VITALS: PULSE 90; O2SAT 97
[2023-04-16 15:14] VITALS: BP 138/57; PULSE 98; RESP 18; TEMP 36.8; O2SAT 93
== END 2023-04-16 15:16 | disposition home or self-care (01) ==
PROVIDERS: Emergency Provider Emergency Medicine; PCP Internal Medicine
DX: U07.1 COVID-19 (principal); I10 Essential (primary) hypertension; E78.5 Hyperlipidemia, unspecified; R51.9 Headache, unspecified
CPT/HCPCS: 71046; 80053; 83605; 83880; 84484; 85007; 85025; 85378; 87040; 87636; 93005; 96361; 96374; 96375; 99285; J2405

== ENCOUNTER → 2023-09-02 10:55 | Outpatient (CLI) | payer MEDICARE, OTHER, SELFPAY ==
[2023-09-02 11:32] LABS: Basophils # 0.1 K/mm3 (0-0.2); Basophils % 0.8 % (0.1-2.0); Eosinophils # 0.1 K/mm3 (0.0-0.4); Hematocrit 44.5 % (37.0-47.0); Hemoglobin 14.5 g/dL (12.2-16.2); Lymphocytes % 28.5 % (10-50); Mean Corpuscular HGB Conc 32.7 g/dL (31.8-35.4); Mean Corpuscular Hemoglobin 29.1 pg (27.0-31.2); Monocytes # 0.6 K/mm3 (0.1-1.0); Monocytes % 5.9 % (1.7-9.3); Neutrophils # 6.7 K/mm3 (1.8-7.8); Neutrophils % 63.8 % (37.0-80.0); Platelet Count 367 K/mm3 (142-424); Red Cell Distribution Width 14.5 % (11.5-17.5); White Blood Count 10.5 K/mm3 (4.8-10.8)
[2023-09-02 11:39] LABS: Blood Urea Nitrogen 19 mg/dl (7-17); Estimated Glomerular Filt Rate 81 ml/min (>60); GFR (African American) 98 ML/MIN (>60)
--- NOTE | 2023-09-02 12:49 | CT_ITS ---
FINAL REPORT TECHNIQUE: Axial images through the abdomen and pelvis were performed without contrast. This study was performed with techniques to keep radiation doses as low as reasonably achievable, (ALARA). Individualized dose reduction techniques using automated exposure control or adjustment of mA and/or kV according to the patient's size were employed. CLINICAL HISTORY: RUQ PAIN,R/O APPENDICITIS oral contrast finished at 11:05 am FINDINGS: Abdomen: The lung bases are clear. There is moderate fatty infiltration of the liver. The gallbladder is absent. The spleen, pancreas, and adrenals are unremarkable. There is a tiny nonobstructing stone in the superior pole of the left kidney. There is a benign-appearing cyst in the superior pole of the right kidney. Pelvis: The urinary bladder is unremarkable. There is extensive sigmoid diverticulosis. There is moderate inflammatory reaction surrounding the distal sigmoid colon consistent with acute diverticulitis. The appendix is unremarkable. There is no pelvic mass or inflammation. IMPRESSION: Acute, uncomplicated sigmoid diverticulitis. Fatty liver. Small nonobstructing left kidney stone. Reviewed, Interpreted and Dictated by Tuan Moralez MD Transcribed by Delmy Bonilla Authenticated and . [facility]
== END ==
PROVIDERS: PCP Internal Medicine; Visit Provider Internal Medicine
DX: R10.11 Right upper quadrant pain (principal)
CPT/HCPCS: 36415; 74176; 82565; 84520; 85025

== ENCOUNTER 2024-01-26 12:08 | Outpatient (CLI) | payer MEDICARE, OTHER, SELFPAY ==
--- NOTE | 2024-01-26 12:18 | XR_ITS ---
FINAL REPORT CLINICAL HISTORY: Foot Pain FINDINGS: Left foot Three views were obtained. There is no acute fracture or dislocation. There are [id number] degenerative changes, worst at the talonavicular. There are postoperative changes of the 5th metatarsal. No soft tissue abnormality is identified. IMPRESSION: Degenerative changes as above. Reviewed, Interpreted and Dictated by Adriel Fritz III, MD Transcribed by Delmy Bonilla Authenticated and [facility]
--- NOTE | 2024-01-26 12:18 | XR_ITS ---
FINAL REPORT CLINICAL HISTORY: Foot Pain FINDINGS: Right foot Three views were obtained. There is no acute fracture or dislocation. There are mild degenerative changes. No soft tissue abnormality is identified. IMPRESSION: No acute process. Reviewed, Interpreted and Dictated by Adriel Fritz III, MD Transcribed by Delmy Bonilla Authenticated and . [facility]
== END 2024-01-26 23:59 | disposition home or self-care (01) ==
PROVIDERS: PCP Internal Medicine; Visit Provider Podiatrist
DX: M79.671 Pain in right foot (principal); M79.672 Pain in left foot
CPT/HCPCS: 73630

== ENCOUNTER 2024-02-19 12:38 | Outpatient (CLI) | payer MEDICARE, OTHER, SELFPAY ==
--- NOTE | 2024-02-19 12:39 | MR_ITS ---
FINAL REPORT CLINICAL HISTORY: evaluate ankle instability, bone cyst, any tears COMPARISON: None FINDINGS: Multiplanar MR imaging of the left ankle was performed without contrast. There is motion on many sequences which somewhat limits overall image quality. The bony structures are intact without evidence of fracture, bone bruise or marrow edema. There is moderate degenerative change predominantly in the midfoot. There is a 3 mm osteochondral lesion in the lateral talar dome. There is decreased signal in the navicular, would favor postoperative change. The ligaments are intact without evidence of injury. The flexor and extensor tendons are intact. There is posterior plantar fasciitis present without a discrete tear. No significant joint effusion is seen. The musculature is intact. There is no evidence of soft tissue mass or cyst. IMPRESSION: Significant decreased signal in the navicular, favor postoperative change. Moderate degenerative change of the midfoot, and a 3 mm osteochondral lesion in the lateral talar dome. Posterior plantar fasciitis without a tear. Reviewed, Interpreted and Dictated by Adriel Fritz III, MD Transcribed by Sabrina Stein Authenticated and [facility]
--- NOTE | 2024-02-19 13:45 | CT_ITS ---
FINAL REPORT TECHNIQUE: Thin section axial CT images of the left foot with coronal and sagittal reformats were performed. This study was performed with techniques to keep radiation doses as low as reasonably achievable (ALARA). Individualized dose reduction techniques using automated exposure control or adjustment of mA and/or kV according to the patient''s size were employed. CLINICAL HISTORY: evaluate 5th met fracture/hardware FINDINGS: There are no fractures. There are mild degenerative changes. Postoperative changes are seen of the fifth metatarsal with screw plate, screws and wires. There is irregularity and sclerosis of the navicular which may represent chronic osteonecrosis or chronic posttreatment change. There is a small plantar calcaneal spur. There are no masses or fluid collections. There are no soft tissue abnormalities. IMPRESSION: Irregularity and sclerosis of the navicular which may represent chronic osteonecrosis or posttreatment change. No acute bony abnormality. Reviewed, Interpreted and Dictated by Adriel Fritz III, MD Transcribed by Nona Hamilton Authenticated and [facility]
== END 2024-02-19 23:59 | disposition home or self-care (01) ==
LOC: RAD 12:39
PROVIDERS: PCP Internal Medicine; Visit Provider Podiatrist
DX: S92.355S Nondisplaced fracture of fifth metatarsal bone, left foot, sequela (principal); M85.672 Other cyst of bone, left ankle and foot; M25.372 Other instability, left ankle; Z98.890 Other specified postprocedural states
CPT/HCPCS: 73700; 73721

== ENCOUNTER 2024-02-23 14:12 | Outpatient (CLI) | payer MEDICARE, OTHER, SELFPAY ==
--- NOTE | 2024-02-23 14:19 | XR_ITS ---
FINAL REPORT CLINICAL HISTORY: soa on exertion COMPARISON: None FINDINGS: Two views of the chest were obtained. The heart size and pulmonary vascularity are within normal limits. The mediastinum is normal. There are mild left lung opacities which likely represent atelectasis or scarring. There is no pneumothorax. The bony thorax is intact. IMPRESSION: Mild left lung opacities, likely atelectasis or scarring. Reviewed, Interpreted and Dictated by Adriel Fritz III, MD Transcribed by China Dao Authenticated and [facility]
--- NOTE | 2024-02-23 14:57 | ECG_ITS ---
APPROVED REPORT Exam: Resting ECG HR:92 bpm ECG Measurements Heart Rate 92 AXES AZ 155 P 76 QRSd 81 QRS 69 QT 343 T 76 QTc 393 Conclusion SINUS RHYTHM LOW QRS VOLTAGE IN PRECORDIAL LEADS [QRS DEFLECTION < 1.0 mV IN CHEST LEADS] BORDERLINE ECG UNCONFIRMED REPORT Electronically signed by : Norman Aviles MD 02/24/2024 15:03:09
[2024-02-23 15:16] LABS: Basophils # 0.1 K/mm3 (0-0.2); Basophils % 1.2 % (0.1-2.0); Eosinophils # 0.1 K/mm3 (0.0-0.4); Eosinophils % 1.1 % (0.1-12.0); Hematocrit 46.8 % (37.0-47.0); Hemoglobin 14.8 g/dL (12.2-16.2); Lymphocytes # 3.2 K/mm3 (0.7-4.5); Lymphocytes % 30.9 % (10-50); Mean Corpuscular HGB Conc 31.6 g/dL (31.8-35.4); Mean Corpuscular Hemoglobin 28.7 pg (27.0-31.2); Mean Corpuscular Volume 90.6 fl (81-99); Mean Platelet Volume 8.5 fl (7.4-10.4); Monocytes # 0.7 K/mm3 (0.1-1.0); Monocytes % 6.5 % (1.7-9.3); Neutrophils # 6.1 K/mm3 (1.8-7.8); Neutrophils % 60.3 % (37.0-80.0); Platelet Count 322 K/mm3 (142-424); Red Blood Count 5.17 M/mm3 (4.20-5.40); Red Cell Distribution Width 14.8 % (11.5-17.5); White Blood Count 10.2 K/mm3 (4.8-10.8)
[2024-02-23 15:27] LABS: Hemoglobin A1C 6.1 % (4.0-6.0)
[2024-02-23 16:19] LABS: Alanine Aminotransferase 40 U/L (12-78); Albumin Level 4.3 g/dl (3.5-5.0); Albumin/Globulin Ratio 1.8 (1.1-1.8); Alkaline Phosphatase 85 U/L (38-126); Anion Gap 15.5 mEq/L (5-15); Aspartate Amino Transferase 53 U/L (14-36); Bilirubin,Total 0.4 mg/dl (0.2-1.3); Blood Urea Nitrogen 18 mg/dl (7-17); Carbon Dioxide 26 mmol/L (22.0-30.0); Chloride 105 mmol/L (98-107); Estimated Glomerular Filt Rate 81 ml/min (>60); GFR (African American) 98 ML/MIN (>60); Globulin 2.4 g/dL (1.3-3.2); Glucose 114 mg/dl (74-100); Potassium 4.5 mmoL/L (3.5-5.1); Sodium 142 mmol/L (136-145); Total Protein,Serum 6.7 g/dl (6.3-8.2); Uric Acid 4.6 mg/dl (2.5-6.2)
[2024-02-23 16:30] LABS: C-Reactive Protein 10.6 mg/L (0-4)
[2024-02-23 17:09] LABS: Vitamin B12 733 pg/mL (239-931)
[2024-02-23 17:28] LABS: Erythrocyte Sedimentation Rate 12 mm/hr (0-30)
[2024-02-25 14:16] LABS: RA Latex Turbid. <10.0 IU/mL (<14.0)
[2024-02-26 08:20] LABS: Antinuclear Antibodies, IFA Negative (.)
== END 2024-02-23 23:59 | disposition home or self-care (01) ==
LOC: LAB 14:15
PROVIDERS: PCP Internal Medicine; Visit Provider Podiatrist
DX: Z01.818 Encounter for other preprocedural examination (principal); R73.03 Prediabetes; M25.572 Pain in left ankle and joints of left foot
CPT/HCPCS: 36415; 71046; 80053; 82607; 83036; 84550; 85025; 85651; 86038; 86140; 86431; 93005

== ENCOUNTER 2024-03-23 09:32 | Day surgery (SDC) | payer MEDICARE, OTHER, SELFPAY ==
[2024-03-16 12:53] VITALS: BMI 34.7
[2024-03-23] VITALS (16 sets, daily range): BP systolic 132–172; BP diastolic 65–110; PULSE 93–106; RESP 14–20; TEMP 36.6–43; O2SAT 90–98
--- NOTE | 2024-03-23 | XR_ITS ---
FINAL REPORT CLINICAL HISTORY: HARDWARE REMOVAL cyst excision , graft FINDINGS: FLUOROSCOPY LESS THAN 1 HOUR HISTORY: Fluoroscopy guidance. FINDINGS: Fluoroscopic guidance was provided for hardware removal/cyst excision. Two spot films were obtained. A total of 0.39 seconds of fluoroscopy time were used. DAP: 1.19 mGy IMPRESSION: As above. Reviewed, Interpreted and Dictated by Adriel Fritz III, MD Transcribed by China Dao Authenticated and [facility]
[2024-03-23] MEDS: LACTATED RINGERS 1000ML 1,000 ML 25 ML IV (10:38)
--- NOTE | 2024-03-23 10:59 | EXP.ANES.CKL ---
[facility] Disclaimer: The information contained in this section may have been updated after the patient was seen, as this information can be updated by other users. Medical History Asthma Surgical History History of hysterectomy History of hysterectomy Family History Brother Family history of stroke Family history of cancer Social History Smoking Status: Never smoker second hand exposure: No alcohol intake: never substance use type: denies use current occupational status: retired Travel in the last 8 weeks: None household members: none housing: house [facility] Anesthesia Checklist Patient Identification Patient Identification: Arm Band Structural Data Admitted From: Home Planned Operative Procedure/s: Left Foot Hardware Removal, Bone Biopsy Consent for Planned Operative Procedure(s) Verified: Yes Verified Documents: Surgical Consent and History and Physical NPO Status Verified Time NPO: 00:00 Additional verifications Anesthesia Reactions: Yes (NAUSEA / VOMITING) Hx Blood Transfusions: No Blood Transfusion Reaction: No Airway Assessment Mallampati Score:: Class II C-Spine Mobility Assessed: Yes TMJ Mobility Assessed: Yes Dentition: Dentures-good fit (removed) Neurological Assessment Level of Consciousness: Awake, Alert and Appropriate Anesthesia Plan Anesthesia Risk discussed: Yes Anesthesia Plan: Verified ASA Class: II Anesthesia Type: General w/block (Left Popliteal/Adductor Canal Nerve Block. Risks/benefits explained. Pt verbalized understanding)
[2024-03-23] MEDS: CLINDAMYCIN PHOSPHATE/D5W 900 MG/50 ML PIGGYBACK 100 MG IV (11:44)
[2024-03-23] MEDS: GENTAMICIN 80 MG/2 ML VIAL (12:02)
--- NOTE | 2024-03-23 14:09 | P.OP_ITS ---
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 Left foot osteoarthritis Painful retained hardware Post-op Diagnosis:: Same Procedure performed:: Left lateral ankle stabilization (99594) excision/curettage bone cyst navicular ([id number]) partial excision and debridement of navicular bone (03862) manual prep and insertion of drug delivery device-intramedullary (Cerament G) () hardware removal () navicular open bone biopsy () Surgeon:: Ofelia Ochoa DPM MEDICAL SERVICE TECHNICIAN:: Ilan Argueta Anesthesia: GETA and regional (Left popliteal nerve block) Estimated blood loss (mL): 20 Clinical Note:: Patient is a 78-year-old female who presents for continued left foot and ankle pain. She reports left ankle instability and weakness secondary to the pain. She reports pain to the navicular and TN joint since her surgery by Dr. Corey in 2016. Left foot x-rays, left foot CT and left ankle MRI were reviewed. Imaging shows retained hardware to the fifth metatarsal fracture site. Imaging also shows osteonecrosis of the navicular with arthritic changes to the midfoot, TN joint. Lateral talar dome 3 mm OCD. Conservative care has been exhausted including: Modification of shoe gear, modification of activity, ice, elevation, compression therapy, stretching, physical therapy, brace/strapping, NSAIDs, pain medication with no relief of symptoms. We discussed surgery. Discussed hardware removal from the fifth metatarsal fracture site. Discussed navicular osteonecrosis subchondroplasty, cyst excision/curettage with autograft bone grafting, possible fracture ORIF. Discussed this would address the osteonecrosis but would not address the arthritis. We did discuss removing the navicular and doing a structural allograft bone wedge, with autograft and TN arthrodesis vs possible cuneiform navicular talar arthrodesis. Given the patient's age and activity level, would prefer the least invasive surgery with less anesthesia time and quicker return to activity. Patient struggled to be strict non weightbearing after the fifth metatarsal ORIF surgery 03/05/2022. Recommend bone stimulator. All risks and benefits were discussed including but not limited to: damage to blood vessels and nerves, bleeding, infection, wound complications, delayed, mal or non-union of bone, post-traumatic arthritis, worsening arthritis, navicular or talus bone collapse, bone fracture, need for further surgery, implant failure, need for removal of implant, prolonged or permanent swelling of the extremity, prolonged or permanent pain or deformity, CRPS/RSD, DVT/PE, and anesthetic complications including . No guarantees were given. All questions fully answered. The patient verbalized understanding and agreed to proceed with surgery. Consent was obtained. Medical clearance per Dr. Barillas. Necessary labs and pre-op testing ordered: CBC, CMP, EKG, CXR. Has a fracture boot, walker. Operative findings:: Left fifth metatarsal cerclage wire was prominent poking from the inside of the skin causing thickened callus. When callus was removed there was 1 drop of yellowish drainage, wound culture taken. Plate and screws removed and there were no deep signs of infection from the bone. Left ankle instability with increased anterior drawer. The ATFL was partially torn. It was repaired and postrepair negative anterior drawer noted. The navicular had cortical irr egularity noted to both the TN and NC joints. Navicular bone was irregular dorsally consistent with prior subchondroplasty procedure. Several subchondral cysts were noted throughout the navicular. Cysts were excised and allograft (Cerament packed into the voids post bone debridement). The bone was soft but no fixation was applied over the graft due to the risk of fracture in the bone upon hardware insertion. Operative note:: On this date and time patient was deemed an appropriate surgical candidate. With informed consent signed, the patient was taken to the operating theater after anesthesia performed regional nerve block. The patient was positioned supine. General anesthesia was induced. Tourniquet was applied to the left mid-calf @225mmHg. IV clindamycin given. Left lower extremity prepped and draped in normal sterile fashion. Left modified Brostrum, ankle ligament stabilization: Attention was directed to the fibula where incision was made over course of the ATFL. Standard full thickness dissection. ATFL was visualized and noted to be attenuated and partial torn. Wound was flushed. A 3.5 mm bone anchor was inserted in standard technique under intraoperative fluoroscopy. ATFL and the CFL was repaired. The extensor tendon was reinforced and incorporated into the repair. Next under intraoperative fluoroscopy stress imaging was performed. Negative talar tilt and no anterior ankle drawer was appreciated. Left 5th Metatarsal Deep Hardware Removal: Attention was directed to the left fifth metatarsal, where a dorsal linear incision was mapped out over the prominent cerclage wire. The scab and callused area directly over the cerclage wire was excised full-thickness and sent for tissue culture. Dissection was carried thru skin and sub q tissue, with care to maintain surgical hemostasis. The hardware was visualized. Cerclage wire was cut in all pieces were successfully removed from around the bone. The plate and screws were intact with no evidence of hardware failure. Intraoperative fluoroscopy was used to visualize plate, screws and the fracture which appeared to be healed. All hardware was removed and sent as culture. There were no signs of infection noted. The soft tissue appeared healthy with no earl or necrotic tissue noted. There was no purulence or malodor appreciated. No palpable lymph nodes. The was flushed with copious amounts of sterile saline mixed with gentamicin irrigation. Cerament was inserted into the screw holes of the void filler. X-rays to confirm all hardware had been removed and graft was in appropriate place. Deep and subcutaneous tissue was repaired with Vicryl. Skin repaired with nylon. Left navicular open bone biopsy: Attention was then directed to the dorsal medial foot where previous incision noted to be a Incision was made at the medial palpable bone. A piece of the navicular was sent for pathology no purulence malodor or drainage noted from the bone. Left excision/curettage bone cyst navicular with allograft, bone debridement, prep/insertion drug delivery device (Cerament G): The tourniquet was inflated at 225mmHg. A dorsal linear incision was then made over the navicular extending from the TN to NC joints. There was significant fibrotic tissue secondary to prior surgery in the area. Dissection full-thickness down to the level of the bone with care to maintain surgical hemostasis. The navicular bone was identified and noted to be irregular and appearance. There was cortical irregularity on the dorsal aspect with jagged spurs noted. There was cortical erosion noted to both the navicular cuneiform and the talar joints. Utilizing a K wire and small drill the dorsal aspect of the navicular cortex was perforated. Curette was used to excise subchondral cyst correlated to the area on MRI. There were several subchondral cysts noted. The entire navicular bone was soft. Navicular bone and bone rongeur. Once the cystic osteonecrotic bone cyst was r esected wound this flushed with gentamicin irrigation. Next the bone and drug delivery device was prepared in standard fashion and inserted into the medullary cancellous navicular defect. Due to the soft irregular quality of the bone, decision was made not to fixation due to the increased risk of the bone fracturing upon fixation insertion. The deep and subcutaneous tissue layer was repaired with Vicryl. Nylon was used to close skin in an interrupted mattress suture fashion. The tourniquet was deflated after 108 mins and immediate hyperemic response was noted to the digits. The wounds were cleansed. Xeroform and a dry sterile dressing was then applied to the left foot/ankle. The patient was awoken from anesthesia and transferred to recovery with vital signs stable and neurovascular status intact. She appeared to tolerate procedure anesthesia well without complication. Material: Rene Irby 3.5mm metallic bone anchor Discharge/Plan: Home today when ready and vital signs stable. Patient is to maintain dressing clean dry and intact. Ice to the top of the foot and elevate on two pillows. No weight bearing to the LLE. Ok for minimal WB in fracture boot with DME assistance (walker) for transitions. Take Oxy as directed from PCP for pain. Take Zofran, gabapentin as directed. Follow up in one week. Tourniquet time (min): 108 Condition: stable Disposition: same day Specimens:: Left foot WCx Left 5th met TCx Left navicular bone pathology Complications:: None
--- NOTE | 2024-03-23 14:12 | P.PNANES_ITS ---
[facility] Anesthesia Record Part I Anesthesia Record I Intake, IV Amount: 750 Hydration: Adequate Estimated blood loss (mL): 20 Urine output (mL): 0 Blood Products used (#): none Blood Pressure: 172/93 SaO2: 94 Pulse Rate: 106 Airway Patency: Patent Respiratory Rate: 14 Temperature: 100 F Patient is:: Drowsy and Stable
--- NOTE | 2024-03-23 14:14 | P.PNANES_ITS ---
[facility] Anesthesia Record Part I Anesthesia Record I Intake, IV Amount: 750 Hydration: Adequate Estimated blood loss (mL): 20 Urine output (mL): 0 Blood Products used (#): none Blood Pressure: 172/93 SaO2: 94 Pulse Rate: 106 Airway Patency: Patent Respiratory Rate: 14 Temperature: 100 F Patient is:: Drowsy and Stable Stable to PACU at:: 14:04
--- NOTE | 2024-03-23 14:15 | XR_ITS ---
FINAL REPORT CLINICAL HISTORY: Post op HWR, cyst excision and graft COMPARISON: 01/26/2024 FINDINGS: Left foot Three views were obtained. The 5th metatarsal screw plate and screws have been removed. There is chronic deformity and fragmentation of the navicular, may represent chronic osteonecrosis. There are postoperative changes of the lateral malleolus. Mild degenerative changes are present. IMPRESSION: Postsurgical and chronic appearing findings. Reviewed, Interpreted and Dictated by Adriel Fritz III, MD Transcribed by Delmy Bonilla Authenticated and [facility]
[2024-03-23] MEDS: IPRATROPIUM/ALBUTEROL 3 ML NEB IH (15:19)
--- NOTE | 2024-03-23 15:35 | SUR.PHASEI ---
1404- patient to PACU from OR. Patient placed on 6LNC upon arrival due to saturations in the high 70's. Oxygen came up to 93% on 6LNC. 1434- Patient has been in PACU for approximately 30 minutes. Patient is now on 4LNC and still only satting between 88-90%. Encouraging patient to take deep breaths. 1454- Patient saturation at 88% on 4LNC. MATIAS cardona called and updated. Stated that he believed it was the medications given in the OR taking some time to leave her system. [id number]- IS numbers [id number]- R Feeback MATIAS also called and spoken with and gave verbal orders to give duoneb. Duoneb given by respiratory at 1514. Patients saturation up to 92% on 2LNC. 03180- Patinet taken to post op, report given to Michelle rock RN
--- NOTE | 2024-03-24 07:17 | EXP.ANES.II ---
[facility] Anesthesia Record Part II Anesthesia Record Part II Discharge Time: 15:24 Destination: Surgical Day Care (OP Surgery) PACU nurse assessment reviewed?: Yes Patient Condition:: Good Anesthesia Complications:: None Swallowing reflex intact?: Yes Airway Patency: Patent Cyanosis?: No Blood Pressure: 144/78 SaO2: 90 Respiratory Rate: 20 Pulse Rate: 99 Temperature: 98 F Mental Status: Alert & Oriented Pain level:: 0 Nausea and/or vomitting:: None Intake, IV Amount: 0 Hydration: Adequate
[2024-03-24 07:19] VITALS: BP 144/78; PULSE 99; RESP 20; TEMP 36.6; O2SAT 90
== END 2024-03-23 16:00 | disposition home or self-care (01) ==
PROVIDERS: PCP Internal Medicine; Visit Provider Podiatrist
PROC: (CPT 20680; principal; 2024-03-23 11:00)
DX: T84.84XA Pain due to internal orthopedic prosthetic devices, implants and grafts, initial encounter (principal); M87.275 Osteonecrosis due to previous trauma, left foot; M85.672 Other cyst of bone, left ankle and foot; M87.875 Other osteonecrosis, left foot; Z79.899 Other long term (current) drug therapy; G89.28 Other chronic postprocedural pain; Y83.1 Surgical operation with implant of artificial internal device as the cause of abnormal reaction of the patient, or of later complication, without mention of misadventure at the time of the procedure
CPT/HCPCS: 20680; 20702; 27696; 28107; 28124; 73620; 73630; 76000; 87070; 87075; 87205; 88307; 88311; 88342; 94640; 96374; C1602; C1713; J1100; J1580; J2250; J2405; J3010; J7120; J7620

== ENCOUNTER 2024-04-07 09:15 | Outpatient (CLI) | payer MEDICARE, OTHER, SELFPAY | END 2024-04-07 23:59 | disposition home or self-care (01) | LOC: LAB.DROPOF 04-08 09:48 | PROVIDERS: PCP Internal Medicine; Visit Provider Podiatrist | DX: S90.829A Blister (nonthermal), unspecified foot, initial encounter (principal); B95.7 Other staphylococcus as the cause of diseases classified elsewhere | CPT/HCPCS: 87070; 87077; 87186; 87205 ==

== ENCOUNTER 2024-04-25 09:35 | Outpatient (CLI) | payer MEDICARE, OTHER, SELFPAY ==
--- NOTE | 2024-04-25 09:38 | XR_ITS ---
FINAL REPORT CLINICAL HISTORY: Foot Pain FINDINGS: LEFT FOOT Three views of the left foot demonstrate no acute fracture or dislocation. There are postoperative changes of the lateral malleolus. Sclerosis is seen of the navicular of uncertain etiology which could represent sequela of prior injury or osteonecrosis. There is also flattening of the head of the second metatarsal of uncertain significance. However, chronic osteonecrosis is not excluded. There is a chronic fracture of the fifth metatarsal. Soft tissue calcifications are seen in the medial midfoot. There is a small plantar calcaneal spur. There is medial soft tissue swelling. IMPRESSION: Degenerative and postoperative changes as above. Reviewed, Interpreted and Dictated by Adriel Fritz III, MD Transcribed by Nona Hamilton Authenticated and [facility]
== END 2024-04-25 23:59 | disposition home or self-care (01) ==
LOC: RAD 09:36
PROVIDERS: PCP Internal Medicine; Visit Provider Podiatrist
DX: M79.672 Pain in left foot (principal)
CPT/HCPCS: 73630

== ENCOUNTER 2024-05-17 10:02 | Outpatient (CLI) | payer MEDICARE, OTHER, SELFPAY ==
--- NOTE | 2024-05-17 10:11 | XR_ITS ---
FINAL REPORT CLINICAL HISTORY: Foot Pain states staph infection after surgery approx 2 months ago COMPARISON: 04/25/2024 FINDINGS: RIGHT FOOT: Three views of the right foot were obtained. There is no acute fracture or dislocation. There is a chronic fracture of the 5th metatarsal. Mild degenerative changes are noted. There is postoperative change of the lateral malleolus. Sclerosis of the medial navicular is stable. A plantar calcaneal spur is noted. There is flattening of the head of the 2nd metatarsal of uncertain significance. However, chronic osteonecrosis is not excluded. This finding is stable from the prior. There is no soft tissue abnormality. IMPRESSION: Chronic and postoperative changes as above. Reviewed, Interpreted and Dictated by Adriel Fritz III, MD Transcribed by China Dao Authenticated and [facility]
[2024-05-17 10:21] LABS: Basophils # 0.2 K/mm3 (0-0.2); Basophils % 1.4 % (0.1-2.0); Eosinophils # 0.1 K/mm3 (0.0-0.4); Eosinophils % 1.1 % (0.1-12.0); Hematocrit 50.2 % (37.0-47.0); Hemoglobin 15.4 g/dL (12.2-16.2); Lymphocytes # 2.9 K/mm3 (0.7-4.5); Mean Corpuscular HGB Conc 30.7 g/dL (31.8-35.4); Mean Corpuscular Hemoglobin 28.7 pg (27.0-31.2); Mean Corpuscular Volume 93.5 fl (81-99); Mean Platelet Volume 8.6 fl (7.4-10.4); Monocytes # 0.7 K/mm3 (0.1-1.0); Monocytes % 6.4 % (1.7-9.3); Neutrophils # 7.6 K/mm3 (1.8-7.8); Platelet Count 348 K/mm3 (142-424); Red Blood Count 5.37 M/mm3 (4.20-5.40); Red Cell Distribution Width 14.7 % (11.5-17.5); White Blood Count 11.6 K/mm3 (4.8-10.8)
[2024-05-17 11:30] LABS: Erythrocyte Sedimentation Rate 40 mm/hr (0-30)
[2024-05-17 11:36] LABS: Alanine Aminotransferase 47 U/L (12-78); Albumin Level 4.3 g/dl (3.5-5.0); Albumin/Globulin Ratio 1.4 (1.1-1.8); Alkaline Phosphatase 83 U/L (38-126); Anion Gap 10.2 mEq/L (5-15); Aspartate Amino Transferase 65 U/L (14-36); Bilirubin,Total 0.6 mg/dl (0.2-1.3); Blood Urea Nitrogen 17 mg/dl (7-17); Calcium 10.1 mg/dl (8.4-10.2); Carbon Dioxide 29 mmol/L (22.0-30.0); Chloride 103 mmol/L (98-107); Estimated Glomerular Filt Rate 120 ml/min (>60); GFR (African American) 145 ML/MIN (>60); Glucose 107 mg/dl (74-100); Potassium 4.2 mmoL/L (3.5-5.1); Sodium 138 mmol/L (136-145); Total Protein,Serum 7.3 g/dl (6.3-8.2)
[2024-05-17 11:41] LABS: C-Reactive Protein 17.9 mg/L (0-4)
[2024-05-17 13:58] LABS: Hemoglobin A1C 6.3 % (4.0-6.0)
== END 2024-05-17 23:59 | disposition home or self-care (01) ==
LOC: LAB 10:03
PROVIDERS: PCP Internal Medicine; Visit Provider Podiatrist
DX: S91.309A Unspecified open wound, unspecified foot, initial encounter (principal); E11.9 Type 2 diabetes mellitus without complications; T14.8XXA Other injury of unspecified body region, initial encounter; M79.673 Pain in unspecified foot
CPT/HCPCS: 36415; 73630; 80053; 83036; 85025; 85651; 86140

== ENCOUNTER 2024-08-22 09:03 | Outpatient (CLI) | payer MEDICARE, OTHER, SELFPAY ==
--- NOTE | 2024-08-22 09:07 | XR_ITS ---
FINAL REPORT CLINICAL HISTORY: foot pain surgery 6 months ago COMPARISON: 05/17/2024 FINDINGS: LEFT FOOT Three views of the left foot demonstrate no acute fracture or dislocation. There is chronic deformity of the fifth metatarsal, likely chronic fracture. Mild degenerative changes noted. Postoperative changes seen in the lateral malleolus. Irregularity of the navicular may represent osteonecrosis but appears stable. A plantar calcaneal spur is noted. The soft tissues are unremarkable. IMPRESSION: Stable appearing irregularity of the navicular. Degenerative and postoperative changes without acute bony abnormality. Reviewed, Interpreted and Dictated by Adriel Fritz III, MD Transcribed by China Dao Authenticated and [facility]
== END 2024-08-22 23:59 | disposition home or self-care (01) ==
LOC: RAD 09:05
PROVIDERS: PCP Internal Medicine; Visit Provider Podiatrist
DX: Z98.890 Other specified postprocedural states (principal); S92.902K Unspecified fracture of left foot, subsequent encounter for fracture with nonunion; M87.275 Osteonecrosis due to previous trauma, left foot
CPT/HCPCS: 73630

== ENCOUNTER 2024-10-10 10:35 | Outpatient (CLI) | payer MEDICARE, OTHER, SELFPAY ==
[2024-10-10 11:00] LABS: Basophils # 0.1 K/mm3 (0-0.2); Basophils % 0.9 % (0.1-2.0); Eosinophils # 0.1 K/mm3 (0.0-0.4); Eosinophils % 0.7 % (0.1-12.0); Hematocrit 45.7 % (37.0-47.0); Hemoglobin 14.7 g/dL (12.2-16.2); Lymphocytes # 3.3 K/mm3 (0.7-4.5); Lymphocytes % 27.9 % (10-50); Mean Corpuscular HGB Conc 32.2 g/dL (31.8-35.4); Mean Corpuscular Hemoglobin 28.4 pg (27.0-31.2); Mean Corpuscular Volume 88.2 fl (81-99); Mean Platelet Volume 11.1 fl (7.4-10.4); Monocytes # 0.8 K/mm3 (0.1-1.0); Monocytes % 6.8 % (1.7-9.3); Neutrophils # 7.4 K/mm3 (1.8-7.8); Neutrophils % 62.9 % (37.0-80.0); Platelet Count 324 K/mm3 (142-424); Red Blood Count 5.18 M/mm3 (4.20-5.40); Red Cell Distribution Width 14.1 % (11.5-17.5); White Blood Count 11.7 K/mm3 (4.8-10.8)
[2024-10-10 11:24] LABS: Alanine Aminotransferase 41 U/L (12-78); Albumin Level 4.4 g/dl (3.5-5.0); Alkaline Phosphatase 81 U/L (38-126); Anion Gap 12.3 mEq/L (5-15); Aspartate Amino Transferase 53 U/L (14-36); Bilirubin,Direct 0.2 mg/dl (0.0-0.4); Bilirubin,Indirect 0.2 mg/dL (0.0-0.9); Bilirubin,Total 0.4 mg/dl (0.2-1.3); Bilirubin,Unconjugated 0.2 mg/dL (0.0-1.1); Blood Urea Nitrogen 22 mg/dl (7-17); Calcium 9.8 mg/dl (8.4-10.2); Carbon Dioxide 25 mmol/L (22.0-30.0); Chloride 107 mmol/L (98-107); Chol/HDL Ratio 3.4 (1-3.5); Cholesterol 202 mg/dl (140-200); Estimated Glomerular Filt Rate 120 ml/min (>60); GFR (African American) 145 ML/MIN (>60); Glucose 99 mg/dl (74-100); HDL Cholesterol 60 mg/dl (40-60); Magnesium 1.8 mg/dl (1.6-2.3); Potassium 4.3 mmoL/L (3.5-5.1); Sodium 140 mmol/L (136-145); Total Protein,Serum 6.9 g/dl (6.3-8.2); Triglycerides 126 mg/dl (30-150); VLDL Cholesterol 25 mg/dL (0-40)
[2024-10-10 13:46] LABS: Free T4 (Free Thyroxine) 1.37 ng/dl (0.78-2.19)
[2024-10-10 20:43] LABS: Direct LDL Cholesterol 130.87 mg/dL (100-129)
[2024-10-10 21:04] LABS: Thyroid Stimulating Hormone 2.96 uIU/mL (0.465-4.68)
== END 2024-10-10 23:59 | disposition home or self-care (01) ==
LOC: LAB 10:37
PROVIDERS: PCP Internal Medicine; Visit Provider Nurse Practitioner Family
DX: I25.2 Old myocardial infarction (principal); I48.91 Unspecified atrial fibrillation; I49.9 Cardiac arrhythmia, unspecified; I10 Essential (primary) hypertension; E78.5 Hyperlipidemia, unspecified; R06.00 Dyspnea, unspecified; R07.9 Chest pain, unspecified; R94.31 Abnormal electrocardiogram [ECG] [EKG]; I25.119 Atherosclerotic heart disease of native coronary artery with unspecified angina pectoris
CPT/HCPCS: 36415; 80048; 80061; 80076; 83735; 84439; 84443; 85025; 93270; 93272

== ENCOUNTER 2024-10-19 07:13 | Outpatient (CLI) | payer MEDICARE, OTHER, SELFPAY ==
--- NOTE | 2024-10-19 | CA_ITS ---
APPROVED REPORT Exam: Pharmacologic Technologist: Dinora Talley Ht: 5 ft 5 in Wt: 212 lbs BSA: 2.03 m2 HR: 74 bpm BP: 163/86 mmHg Stress Test Details Test: Lexiscan HR Resting HR: 74 bpm Max Heart Rate (APMHR): 143 bpm Max HR Achieved: 98 bpm Target HR (85% APMHR): 122 bpm % of APMHR: 69 Recovery HR: 82 bpm BP Resting BP: 163.0/86.0 mmHg Max BP: 172.0/85.0 mmHg Recovery BP: 153.0/85.0 mmHg ECG Stress ECG Conclusion Symptoms: Shortness of breath and dizziness with Lexiscan. Arrhythmias/Ectopy: PVCs noted. ST-T Changes: < 1.[address] depression. Electronically signed by : Kailyn Kelley MD 10/19/2024 23:56:10
--- NOTE | 2024-10-19 07:20 | CA_ITS ---
APPROVED REPORT EXAM: Comprehensive 2D, Doppler, and color-flow Echocardiogram Label Machine Operator: Krystle Yip RDCS Ht: 145 ft 5 in Wt: 212lbs BSA: 22.03 BP: 145/82 mmHg Indications: CP,ABN EKG,CAD,NEW AF M-Mode Dimensions RVDd 2.33 cm (0.9-2.6) LA Diam 4.09 cm (1.9-4.0) LVDd 5.30 cm (3.5-5.7) LVDs 3.69 cm (3.5-5.7) IVSd 0.89 cm (0.6-1.1) PWd 0.89 cm (0.6-1.1) EF (Teich) 57.30% FS 30.40% EDV (Teich) 135.30 mL TAPSE 2.13 (<1.7) ESV (Teich) 57.80 mL LV Diastology E Decel Time 207 (160-240 msec) E/A Ratio 1.0 Aortic Valve JOHN Index 0.68 cm2/m2 AoV Peak Oscar. 169.0 (50-130 cm/s) AO Peak GR. 11.40 mmHg AO Mean GR. 5.60 (<5 mmHg) AO VTI 33.8 (18-25 cm) JOHN (VTI) 1.41 (2.5-4.5 cm2) Mitral Valve MV E Max Oscar. 77.0 (40-130 cm/s) MV A Velocity 77.0 (40-130 cm/s) E/A Ratio 1.00 MV PHT 61.0 ms Left Ventricle The left ventricle is normal size. The left ventricular systolic function is normal. The left ventricular ejection fraction is within the normal range. There is increased LV wall thickness. There is normal LV segmental wall motion. Diastolic function is indeterminate. LVEF is 55%. Right Ventricle The right ventricle is normal size. The right ventricular systolic function is normal. Atria Left atrium is mildly dilated. The right atrium is mildly dilated. There is no Doppler evidence of interatrial shunt. Aortic Valve The aortic valve is mildly thickened. There is no aortic valvular stenosis. No aortic regurgitation is present. Mitral Valve The mitral valve is normal in structure. No evidence of mitral valve stenosis. Mild mitral regurgitation. Tricuspid Valve Tricuspid valve is grossly normal in structure and function. Mild tricuspid regurgitation. RVSP is 25-30 mmHg. Pulmonic Valve The pulmonary valve is normal in structure. Trace pulmonic regurgitation. Great Vessels The aortic root is normal in size. The ascending aorta is not well-visualized. IVC is normal in size and collapses >50% with inspiration. Pericardium There is no pericardial effusion. Other Information Study Quality: Fair Conclusion Normal biventricular systolic function. Biatrial dilation. Mild MR, mild TR. RVSP 25-30 mmHg. Electronically signed by : Kailyn Kelley MD 10/24/2024 11:49:37
--- NOTE | 2024-10-19 07:23 | NM_ITS ---
APPROVED REPORT Exam: Nuclear Stress Test Indication: cad, htn, hyperlipidemia, fm hx, c.p., sob, abn ekg Patient Location: Outpatient Stress Tech: Dinora Talley [place] Tech:FERNANDO Pineda RT (R)(N)(M) Ht: 5 ft 5 in Wt: 212 lbs Bra Size: 42c HR: 74 bpm BP: 163/86 mmHg BSA: 2.03 m2 TID: 1.15 BMI: 35.2 History: cad, htn, hyperlipidemia, fm hx, c.p., sob, abn ekg Procedure: Patient received 0.4 mg of intravenous Lexiscan, resting heart rate 74 bpm, resting blood pressure 163/86 mmHg, with Lexiscan maximum heart rate achieved was 98 bpm which is % of the maximum predicted heart rate and blood pressure was 172/85 mmHg. With Lexiscan, patient denied any complaint of chest pain. Cardiac Stress and Resting SPECT Images: Cardiac Stress and Resting SPECT images were obtained using technetium 99m Myoview 29.2 mCi stress and 10.48 mCi at rest. Resting and stress imaging in supine and prone positions demonstrate a small sized, moderate, reversible perfusion defect in the basal lateral LV wall. Gated imaging demonstrates normal global and regional LV systolic function. LVEF is calculated at 65%. Conclusion: Small sized, moderate, reversible perfusion defect in the basal lateral LV wall. Findings are suggestive of reversible ischemia. Gated imaging demonstrates normal global and regional LV systolic function. LVEF is calculated at 65%. Electronically signed by : Kailyn Kelley MD 10/19/2024 23:50:18
[2024-10-19] MEDS: SODIUM CHLORIDE 0.9% 10ML SYR (RAD ONLY) 10 ML IV ×2 (07:30→09:30)
[2024-10-19] MEDS: REGADENOSON 0.4MG/5ML SYRINGE 0.4 MG IV (09:30)
[2024-10-19] MEDS: ISOTOPE MYOVIEW (PER STUDY) 1 DOSE IV (10:41)
== END 2024-10-19 23:59 | disposition home or self-care (01) ==
LOC: RAD 07:15
PROVIDERS: PCP Internal Medicine; Visit Provider Nurse Practitioner Family
DX: I25.10 Atherosclerotic heart disease of native coronary artery without angina pectoris (principal); I25.2 Old myocardial infarction; I48.91 Unspecified atrial fibrillation; I49.9 Cardiac arrhythmia, unspecified; I10 Essential (primary) hypertension; E78.5 Hyperlipidemia, unspecified; R06.00 Dyspnea, unspecified; R07.9 Chest pain, unspecified; R94.31 Abnormal electrocardiogram [ECG] [EKG]
CPT/HCPCS: 78452; 93017; 93018; 93306; A9502; J2785

== ENCOUNTER 2024-11-01 10:31 | Outpatient (CLI) | payer MEDICARE, OTHER, SELFPAY ==
[2024-11-01 11:13] LABS: Basophils # 0.1 K/mm3 (0-0.2); Basophils % 0.5 % (0.1-2.0); Eosinophils # 0.1 K/mm3 (0.0-0.4); Eosinophils % 1.2 % (0.1-12.0); Hematocrit 42.8 % (37.0-47.0); Hemoglobin 13.6 g/dL (12.2-16.2); Lymphocytes # 3.4 K/mm3 (0.7-4.5); Mean Corpuscular HGB Conc 31.8 g/dL (31.8-35.4); Mean Corpuscular Hemoglobin 28.6 pg (27.0-31.2); Mean Corpuscular Volume 89.9 fl (81-99); Mean Platelet Volume 11.8 fl (7.4-10.4); Monocytes # 0.8 K/mm3 (0.1-1.0); Monocytes % 6.7 % (1.7-9.3); Neutrophils # 6.8 K/mm3 (1.8-7.8); Neutrophils % 60.7 % (37.0-80.0); Platelet Count 302 K/mm3 (142-424); Red Blood Count 4.76 M/mm3 (4.20-5.40); Red Cell Distribution Width 13.8 % (11.5-17.5); White Blood Count 11.2 K/mm3 (4.8-10.8)
[2024-11-01 11:20] LABS: Albumin Level 4.3 g/dl (3.5-5.0)
[2024-11-01 11:21] LABS: Chloride 106 mmol/L (98-107); Potassium 4.1 mmoL/L (3.5-5.1); Sodium 141 mmol/L (136-145)
[2024-11-01 11:23] LABS: Alanine Aminotransferase 28 U/L (12-78); Anion Gap 12.1 mEq/L (5-15); Aspartate Amino Transferase 36 U/L (14-36); Bilirubin,Unconjugated 0.2 mg/dL (0.0-1.1); Blood Urea Nitrogen 18 mg/dl (7-17); Carbon Dioxide 27 mmol/L (22.0-30.0); Estimated Glomerular Filt Rate 97 ml/min (>60); GFR (African American) 117 ML/MIN (>60); Total Protein,Serum 6.6 g/dl (6.3-8.2)
[2024-11-01 11:24] LABS: Alkaline Phosphatase 80 U/L (38-126); Bilirubin,Direct 0.1 mg/dl (0.0-0.4); Bilirubin,Indirect 0.2 mg/dL (0.0-0.9); Bilirubin,Total 0.3 mg/dl (0.2-1.3); Calcium 9.4 mg/dl (8.4-10.2); Chol/HDL Ratio 2.4 (1-3.5); Cholesterol 137 mg/dl (140-200); Glucose 123 mg/dl (74-100); HDL Cholesterol 56 mg/dl (40-60); Magnesium 1.8 mg/dl (1.6-2.3); Triglycerides 161 mg/dl (30-150); VLDL Cholesterol 32 mg/dL (0-40)
[2024-11-01 11:35] LABS: Direct LDL Cholesterol 57.44 mg/dL (100-129)
[2024-11-01 11:41] LABS: Free T4 (Free Thyroxine) 1.38 ng/dl (0.78-2.19)
[2024-11-01 11:55] LABS: Thyroid Stimulating Hormone 3.83 uIU/mL (0.465-4.68)
== END 2024-11-01 23:59 | disposition home or self-care (01) ==
LOC: LAB 10:32
PROVIDERS: PCP Internal Medicine; Visit Provider Nurse Practitioner Family
DX: I25.10 Atherosclerotic heart disease of native coronary artery without angina pectoris (principal); I25.2 Old myocardial infarction; I48.91 Unspecified atrial fibrillation; I49.9 Cardiac arrhythmia, unspecified; I10 Essential (primary) hypertension; E78.5 Hyperlipidemia, unspecified; R06.00 Dyspnea, unspecified; R07.9 Chest pain, unspecified; R94.31 Abnormal electrocardiogram [ECG] [EKG]
CPT/HCPCS: 36415; 80048; 80061; 80076; 83735; 84439; 84443; 85025

== ENCOUNTER 2024-11-08 08:25 | Day surgery (SDC) | payer MEDICARE, OTHER, SELFPAY ==
[2024-11-08] VITALS (15 sets, daily range): BP systolic 111–173; BP diastolic 81–94; PULSE 90–156; RESP 18–20; O2SAT 93–98; BMI 35.9
--- NOTE | 2024-11-08 07:12 | IR_ITS ---
APPROVED REPORT Patient Location: Outpatient Help Desk Operator: FERNANDO Flores RT (R) PROCEDURES Left heart catheterization Left ventriculogram Selective coronary angiogram Drug-eluting stent deployment to the distal dominant right coronary INDICATION Coronary artery disease, Abnormal Myoview with inferior lateral ischemia, Angina pectoris Informed consent was obtained prior to the procedure. COMPLICATIONS NONE Estimated Blood Loss: LESS THAN 10 ML TECHNIQUE One percent lidocaine used to anesthetize the right anterior aspect of the wrist. The right radial artery was accessed via the Seldinger technique. A 6 Ethiopian sheath was placed in the right radial artery. 2.5 mg of Verapamil, 800 mcg of nitroglycerin, 1mg Lidocaine and 5000 U Heparin were given through the arterial sheath. The 6 Ethiopian JL 3 guide catheter was also used to perform left heart catheterization, left ventriculogram and selective coronary angiogram. At the end of the diagnostic angiogram therapeutic heparin was administered giving a therapeutic ACT and the guide catheter was placed in the right coronary artery followed by Choice PT extra-support wire. A 3.5 x 34 mm Luther frontier stent was deployed at 12 emily reducing the stenosis. There is additional stenosis at the proximal transition point therefore an additional 3.5 x 12 mm [place] frontier stent was placed proximal to the for stent yet still overlapping and deployed at 18 emily. The balloon was then advanced distally and postdilated and an area of interest just proximal to the PDA and PLV B at 18 emily. SANIYA-3 flow was present before and after the procedure. At the end the procedure the apparatus was removed the sheath was removed good hemostasis was achieved using TR banding patient was transferred to the postop putting in stable condition ANGIOGRAPHIC RESULTS The left main artery Normal The left anterior descending artery Has mild proximal 10% stenosis mid vessel 10 to 20% stenosis The circumflex artery Large nondominant normal The right coronary artery Large and dominant with proximal 20 to 30% stenosis and a distal 40% stenosis and a distal 60 to 70% hazy stenosis immediately proximal to the PDA and posterior lateral branch The CHRISTIANSON ventriculogram reveals Normal 65% The left ventricular end-diastolic pressure Severely elevated at 35 mmHg IMPRESSION Abnormal Myoview in the inferior distribution which had hazy stenoses consistent with the ischemic area of interest Successful stenting of the distal right coronary severe disease reduced to 0% with 2 contiguous drug-eluting stents Normal ejection fraction Severely elevated LVEDP PLAN 1. Aspirin Plavix and Eliquis for 30 days then discontinue aspirin 2. LDL less than 55 achieved high intensity statin 3. Will add diuretic and treat diastolic dysfunction 4. Cardiac rehabilitation 5. Avoidance of tobacco products 6. Risk factor modification 7. Recommend sleep study Electronically signed by : Julio Enriquez MD 11/08/2024 11:06:48
[2024-11-08 08:51] LABS: Basophils # 0.1 K/mm3 (0-0.2); Basophils % 0.7 % (0.1-2.0); Eosinophils # 0.1 K/mm3 (0.0-0.4); Eosinophils % 1.2 % (0.1-12.0); Hematocrit 44.4 % (37.0-47.0); Hemoglobin 13.8 g/dL (12.2-16.2); Lymphocytes % 29.1 % (10-50); Mean Corpuscular HGB Conc 31.1 g/dL (31.8-35.4); Mean Corpuscular Hemoglobin 27.7 pg (27.0-31.2); Mean Platelet Volume 10.8 fl (7.4-10.4); Monocytes # 0.7 K/mm3 (0.1-1.0); Monocytes % 6.7 % (1.7-9.3); Neutrophils # 6.4 K/mm3 (1.8-7.8); Neutrophils % 61.3 % (37.0-80.0); Platelet Count 304 K/mm3 (142-424); Red Blood Count 4.99 M/mm3 (4.20-5.40); Red Cell Distribution Width 13.9 % (11.5-17.5); White Blood Count 10.4 K/mm3 (4.8-10.8)
[2024-11-08 08:55] LABS: Chloride 103 mmol/L (98-107); Sodium 140 mmol/L (136-145)
[2024-11-08 08:56] LABS: Potassium 3.5 mmoL/L (3.5-5.1)
[2024-11-08 08:58] LABS: Blood Urea Nitrogen 15 mg/dl (7-17); Creatinine Clearance Estimated 73 mL/min (50-200); Estimated Glomerular Filt Rate 120 ml/min (>60); GFR (African American) 145 ML/MIN (>60)
[2024-11-08 08:59] LABS: Anion Gap 11.5 mEq/L (5-15); Calcium 9.1 mg/dl (8.4-10.2); Carbon Dioxide 29 mmol/L (22.0-30.0); Glucose 108 mg/dl (74-100)
[2024-11-08] MEDS: diphenhydrAMINE 50MG/ML VIAL 50 MG IV (10:20)
[2024-11-08] MEDS: FAMOTIDINE 20MG/2ML VIAL 20 MG IV (10:21)
[2024-11-08] MEDS: METHYLPREDNISOLONE SOD SUCC 125MG VIAL 125 MG IV (10:21)
[2024-11-08] MEDS: LIDOCAINE 1% 10ML MDV 20 ML IJ (10:27)
[2024-11-08] MEDS: 0.9 % SODIUM CHLORIDE 500 ML 25 ML IV (10:27)
[2024-11-08] MEDS: NITROGLYCERIN 800MCG/8ML SYR (CATH LAB) 800 MCG IA (10:27)
[2024-11-08] MEDS: MIDAZOLAM HCL 1MG/ML 5ML VIAL 1 MG IV (10:28)
[2024-11-08] MEDS: FENTANYL 100MCG/2ML VIAL 50 MCG IV (10:28)
[2024-11-08] MEDS: HEPARIN 1,000 UNITS/500ML NS (CATH LAB) 3000 UNIT IV (10:28)
[2024-11-08] MEDS: VERAPAMIL 2.5MG/ML 2ML VIAL 2.5 MG IV (10:57)
[2024-11-08] MEDS: HEPARIN 1,000 UNITS/ML 10ML VIAL (CATH LAB) 10000 UNIT IV (10:57)
[2024-11-08] MEDS: CLOPIDOGREL 300MG TABLET 600 MG PO (11:15)
[2024-11-08] MEDS: IOPAMIDOL-370 (76%);100ML BOTTLE 90 ML IV (13:23)
[2024-11-08] MEDS: METOPROLOL SUCCINATE XL 25MG TABLET 25 MG PO ×2 (13:24→14:05)
[2024-11-08 13:52] LABS: CATHL Activated Clotting Time > 400 SEC (74-125)
== END 2024-11-08 14:34 | disposition home or self-care (01) ==
PROVIDERS: PCP Internal Medicine; Visit Provider Internal Medicine
DX: I25.118 Atherosclerotic heart disease of native coronary artery with other forms of angina pectoris (principal); I48.91 Unspecified atrial fibrillation; R93.1 Abnormal findings on diagnostic imaging of heart and coronary circulation; R06.83 Snoring; R94.31 Abnormal electrocardiogram [ECG] [EKG]; R06.09 Other forms of dyspnea; I25.2 Old myocardial infarction; Z95.5 Presence of coronary angioplasty implant and graft; Z79.899 Other long term (current) drug therapy; Z79.01 Long term (current) use of anticoagulants; I10 Essential (primary) hypertension
CPT/HCPCS: 80048; 85025; 85347; 92928; 93458; 99152; C1725; C1769; C1874; C9600; J1200; J1644; J2919; J3010; Q9967; S0028

== ENCOUNTER 2024-11-11 07:03 | Outpatient (CLI) | payer MEDICARE, OTHER, SELFPAY ==
[2024-11-11 08:04] LABS: Basophils # 0.1 K/mm3 (0-0.2); Basophils % 0.6 % (0.1-2.0); Eosinophils # 0.2 K/mm3 (0.0-0.4); Eosinophils % 1.1 % (0.1-12.0); Hematocrit 47.3 % (37.0-47.0); Hemoglobin 15.3 g/dL (12.2-16.2); Lymphocytes # 3.6 K/mm3 (0.7-4.5); Lymphocytes % 25.7 % (10-50); Mean Corpuscular HGB Conc 32.3 g/dL (31.8-35.4); Mean Corpuscular Hemoglobin 28.1 pg (27.0-31.2); Mean Corpuscular Volume 86.9 fl (81-99); Mean Platelet Volume 11.3 fl (7.4-10.4); Monocytes % 7.4 % (1.7-9.3); Neutrophils # 9.1 K/mm3 (1.8-7.8); Neutrophils % 64.3 % (37.0-80.0); Platelet Count 375 K/mm3 (142-424); Red Blood Count 5.44 M/mm3 (4.20-5.40); White Blood Count 14.1 K/mm3 (4.8-10.8)
[2024-11-11 08:32] LABS: Anion Gap 12.9 mEq/L (5-15); Blood Urea Nitrogen 29 mg/dl (7-17); Calcium 9.5 mg/dl (8.4-10.2); Carbon Dioxide 27 mmol/L (22.0-30.0); Chloride 101 mmol/L (98-107); Estimated Glomerular Filt Rate 97 ml/min (>60); GFR (African American) 117 ML/MIN (>60); Glucose 128 mg/dl (74-100); Potassium 4.9 mmoL/L (3.5-5.1); Sodium 136 mmol/L (136-145)
== END 2024-11-11 23:59 | disposition home or self-care (01) ==
LOC: LAB 07:05
PROVIDERS: PCP Internal Medicine; Visit Provider Internal Medicine
DX: Z95.5 Presence of coronary angioplasty implant and graft (principal); I10 Essential (primary) hypertension
CPT/HCPCS: 36415; 80048; 85025

== ENCOUNTER 2024-11-21 08:15 | Outpatient (CLI) | payer MEDICARE, OTHER, SELFPAY ==
[2024-11-21 08:23] LABS: MANUAL DIFFERENTIAL MANUAL DIFFERENTIAL (MANUAL DIFF)
[2024-11-21 08:56] LABS: Basophils # 0.1 K/mm3 (0-0.2); Basophils % 0.9 % (0.1-2.0); Eosinophils # 0.1 K/mm3 (0.0-0.4); Eosinophils % 1.2 % (0.1-12.0); Hematocrit 46.8 % (37.0-47.0); Hemoglobin 14.7 g/dL (12.2-16.2); Lymphocytes # 2.4 K/mm3 (0.7-4.5); Lymphocytes % 22.7 % (10-50); Mean Corpuscular HGB Conc 31.4 g/dL (31.8-35.4); Mean Corpuscular Hemoglobin 27.8 pg (27.0-31.2); Mean Corpuscular Volume 88.5 fl (81-99); Monocytes # 0.7 K/mm3 (0.1-1.0); Monocytes % 6.8 % (1.7-9.3); Neutrophils # 7.1 K/mm3 (1.8-7.8); Neutrophils % 67.5 % (37.0-80.0); Platelet Count 350 K/mm3 (142-424); Red Blood Count 5.29 M/mm3 (4.20-5.40); White Blood Count 10.5 K/mm3 (4.8-10.8)
[2024-11-21 09:44] LABS: Lymphocytes % 35 % (10-50); Monocytes % 6 % (2-9); Neutrophils % 59 % (42-76); Total Cells Counted 100
[2024-11-21 09:45] LABS: Platelet Estimate Normal; RBC Morphology Normal
== END 2024-11-21 23:59 | disposition home or self-care (01) ==
LOC: LAB 08:16
PROVIDERS: PCP Internal Medicine; Visit Provider Internal Medicine
DX: R07.9 Chest pain, unspecified (principal); I50.30 Unspecified diastolic (congestive) heart failure; Z95.5 Presence of coronary angioplasty implant and graft
CPT/HCPCS: 36415; 85007; 85014; 85018; 85048; 85049

== ENCOUNTER 2025-04-17 07:01 | Outpatient (CLI) | payer MEDICARE, OTHER, SELFPAY ==
--- NOTE | 2025-04-17 07:00 | CT_ITS ---
FINAL REPORT TECHNIQUE: Axial images through the abdomen and pelvis were performed without contrast. This study was performed with techniques to keep radiation doses as low as reasonably achievable, (ALARA). Individualized dose reduction techniques using automated exposure control or adjustment of mA and/or kV according to the patient's size were employed. CLINICAL HISTORY: Hematuria, left back pain COMPARISON: 09/02/2023 FINDINGS: Abdomen: The lung bases are clear. The liver parenchyma is homogeneous. The gallbladder is surgically absent. The spleen, pancreas, and adrenals are unremarkable. There is a kidney stone at the left UPJ measuring 7 mm. No hydronephrosis. There are small nonobstructing stones in the right renal collecting system. A cyst in the right kidney measures 1.7 cm in diameter. 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 Pelvis: There is moderate descending and sigmoid diverticulosis without evidence of diverticulitis. The urinary bladder is unremarkable. The appendix is not visualized. There is no pelvic mass or inflammation. IMPRESSION: 7 mm obstructing stone left UPJ without hydronephrosis. 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 Small nonobstructing stones right kidney. Reviewed, Interpreted and Dictated by Tuan Moralez MD Transcribed by China Dao Authenticated and [facility]
--- OUTSIDE RECORDS SUMMARY | 2025-04-17 07:03 | XMS_ITS | Clinical Summary ---
Author Organization [facility] ystem Address [address] [place] [address] Care Team Providers Care Farm Owner Operator Name Role Phone Unavailable Primary Care Provider Unavailabl e Social History Tobacco Use Types Packs/Day Years Used Date Smoking Tobacco: Never Assessed Abuse Screen Answer Date Recorded Unsafe at Home or Work/School Not on file Feels Threatened by Someone? Not on file 05/2023 Does Anyone Keep You from Co ntacting Others or Doint Things Outside the Home? Not on file 06/22/2023 Physical Sign of Abuse Present Not on file 1 Housing Stability Answer Date Recorded Current Living Arrangements Not on file 05/2023 Potentially Unsafe Housing Conditions Not on anne e 06/22/2023 Family and Community Support Answer Clement e Recorded Help with Day-to-Day Activities Not on file 06/22/2023 Lonely or Isolated Not on file 06/22/2023 Employment Answer Date Recorded Do you want help finding or keeping work or a jillian b? Not on file 06/22/2023 Disabilities Answer Date Recorded Concentrating, Remembering, or Making Decisions Difficulty Not on file 06/22/2023 Doing Errands Independently Difficulty Not on fi le 06/22/2023 Education Answer Date Recorded Help with school or training? Not on file Preferred Language Not on file 06/22/2023 Comments Unknown Sex and Gender Information Value Date Recorded Sex Assigned at Not on file Legal Sex Female 11:44 AM EDT Gender Identity Not on file Sexual Orientation Not on file Plan of Treatment Health Maintenance Due Date Last Done Comments ANNUAL PHYSICAL 1945 DXA SCAN 1945 HEPATITIS C SCREENING 1945 TDAP/TD VACCINES (1 - Tdap) 1965 Pneumococcal Vaccine 50+ (1 of 1 - PCV) 1996 ZOSTER VACCINE (1 of 2) 1996 RSV Vaccine - Adults (1 - 1-dose 75+ series) 2 COVID-19 Vaccine (2023- season) 2024 INFLUENZA VACCINE 06/14/2025
== END 2025-04-17 23:59 | disposition home or self-care (01) ==
LOC: RAD 07:02
PROVIDERS: PCP Internal Medicine; Visit Provider Internal Medicine
DX: R31.9 Hematuria, unspecified (principal); R10.9 Unspecified abdominal pain; N20.0 Calculus of kidney
CPT/HCPCS: 74176

== ENCOUNTER 2025-06-01 13:29 | Outpatient (CLI) | payer MEDICARE, OTHER, SELFPAY ==
--- OUTSIDE RECORDS SUMMARY | 2025-06-01 13:32 | XMS_ITS | Clinical Summary ---
Author Organization [facility] ystem Address [address] [place] [address] Care Team Providers Care Regulatory Assistant Name Role Phone Unavailable Primary Care Provider [...] Adults (1 - 1-dose 75+ series) 2 INFLUENZA VACCINE 04/14/2025 COVID-19 Vaccine (2023- season) 2025
--- NOTE | 2025-06-01 13:40 | ECG_ITS ---
APPROVED REPORT Exam: Resting ECG HR:61 bpm ECG Measurements Heart Rate 61 AXES AR 188 P 67 QRSd 83 QRS 37 QT 400 T 74 QTc 404 Conclusion SINUS RHYTHM LOW QRS VOLTAGE IN PRECORDIAL LEADS [QRS DEFLECTION < 1.0 mV IN CHEST LEADS] MINIMAL ST DEPRESSION [0.025+ mV ST DEPRESSION] BORDERLINE ECG UNCONFIRMED REPORT Electronically signed by : Norman Aviles MD 06/02/2025 08:27:52
[2025-06-01 13:50] LABS: Microscopic, Urine URINE MICROSCOPIC (MICROSCOPIC)
--- NOTE | 2025-06-01 14:01 | XR_ITS ---
FINAL REPORT CLINICAL HISTORY: History of diastolic congestive heart failure, general weakness x 2 weeks COMPARISON: 03/04/2022 FINDINGS: CHEST 2 VIEWS No acute pulmonary density is evident. There is no evidence of effusion or other pleural disease. The mediastinum has a normal appearance. The cardiac silhouette is unremarkable. IMPRESSION: Unremarkable chest exam. Reviewed, Interpreted and Dictated by Joe Fuller MD Transcribed by Louann Nielsen Authenticated and [facility]
[2025-06-01 14:04] LABS: Hematocrit 49.2 % (37.0-47.0); Hemoglobin 15.5 g/dL (12.2-16.2); Immature Granulocytes % 1.2 %; Mean Corpuscular HGB Conc 31.5 g/dL (31.8-35.4); Mean Corpuscular Hemoglobin 28.0 pg (27.0-31.2); Mean Corpuscular Volume 89.0 fl (81-99); Nucleated Red Blood Cells % 0 %; Platelet Count 277 K/mm3 (142-424); Red Blood Count 5.53 M/mm3 (4.20-5.40); Red Cell Distribution Width-SD 47.6 fL; White Blood Count 9.3 K/mm3 (4.8-10.8)
[2025-06-01 14:09] LABS: Color,Urine YELLOW (Yellow); Glucose,Urine (UA) Negative (Negative); Ketones,Urine TRACE (Negative); Leukocyte Esterase,Urine TRACE (Negative); PH,Urine 5.5 (5.0-8.5); Protein,Urine 1+ (Negative); Specific Gravity, Urine >= 1.030 (1.005-1.030); Urobilinogen,Urine 1.0 EU/dl (0.2)
[2025-06-01 14:14] LABS: Albumin Level 4.8 g/dl (3.5-5.0); Chloride 100 mmol/L (98-107); Potassium 4.2 mmoL/L (3.5-5.1); Sodium 139 mmol/L (136-145)
[2025-06-01 14:17] LABS: Alanine Aminotransferase 32 U/L (12-78); Albumin/Globulin Ratio 1.5 (1.1-1.8); Alkaline Phosphatase 95 U/L (38-126); Anion Gap 16.2 mEq/L (5-15); Aspartate Amino Transferase 43 U/L (14-36); Bilirubin,Total 1.0 mg/dl (0.2-1.3); Blood Urea Nitrogen 23 mg/dl (7-17); Carbon Dioxide 27 mmol/L (22.0-30.0); Creatinine,Serum 0.80 mg/dl (0.52-1.04); Estimated Glomerular Filt Rate 69 ml/min (>60); GFR (African American) 84 ML/MIN (>60); Globulin 3.2 g/dL (1.3-3.2); Total Protein,Serum 8.0 g/dl (6.3-8.2)
[2025-06-01 14:18] LABS: Calcium 9.9 mg/dl (8.4-10.2); Glucose 108 mg/dl (74-100)
[2025-06-01 14:30] LABS: Troponin I < 0.01 ng/ml (0.00-0.034)
[2025-06-01 15:10] LABS: Bilirubin,Urine 1+ (Negative)
[2025-06-01 15:13] LABS: Bacteria,Urine 2+ /lpf; Mucus,Urine 1+ /lpf
== END 2025-06-01 23:59 | disposition home or self-care (01) ==
LOC: LAB 13:30
PROVIDERS: PCP Internal Medicine; Visit Provider Internal Medicine
DX: I11.0 Hypertensive heart disease with heart failure (principal); I50.30 Unspecified diastolic (congestive) heart failure; R63.0 Anorexia; I20.9 Angina pectoris, unspecified; I25.2 Old myocardial infarction; R61 Generalized hyperhidrosis
CPT/HCPCS: 71046; 80053; 81001; 84484; 85025; 87086; 93005

== ENCOUNTER 2025-06-19 09:42 | Outpatient (CLI) | payer MEDICARE, OTHER, SELFPAY ==
--- OUTSIDE RECORDS SUMMARY | 2025-06-19 09:46 | XMS_ITS | Clinical Summary ---
Author Organization [facility] ystem Address [address] [place] [address] Care Team Providers Care Lobby Porter Name Role Phone Unavailable Primary Care Provider [...]
--- NOTE | 2025-06-19 10:00 | US_ITS ---
FINAL REPORT TECHNIQUE: Sonographic images of the kidneys and retroperitoneum were obtained in the longitudinal and transverse planes. CLINICAL HISTORY: .RECENT CT AND UTI-- PT STATES HX OF STONE COMPARISON: CT scan 04/17/2025 FINDINGS: The right kidney measures 11.9 cm in [id number] length. No hydronephrosis. 2.1 cm simple cyst. Cortical thinning but normal echogenicity. The left kidney measures 12.3 cm in [id number] length. No hydronephrosis. The may be a parapelvic cysts in the lower pole. 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 Cortical thinning but normal echogenicity. Shadowing within the left renal pelvis of uncertain etiology. No large stone visualized at this location on CT scan. Limited evaluation of the spleen and liver demonstrate no acute abnormality. IMPRESSION: Bilateral renal cortical thinning. Right renal cyst and probable left parapelvic renal cyst. Shadowing left renal pelvis of uncertain etiology. Consider follow-up CT if indicated. Reviewed, Interpreted and Dictated by Theresa Spence MD Transcribed by China Dao Authenticated and . [facility]
== END 2025-06-19 23:59 | disposition home or self-care (01) ==
LOC: RAD 09:43
PROVIDERS: PCP Internal Medicine; Visit Provider Internal Medicine
DX: N28.1 Cyst of kidney, acquired (principal); N20.0 Calculus of kidney; R93.422 Abnormal radiologic findings on diagnostic imaging of left kidney; R93.421 Abnormal radiologic findings on diagnostic imaging of right kidney
CPT/HCPCS: 76770